=== PATIENT | male | born 1945 | race Caucasian/White ===

== ENCOUNTER → 2016-08-15 | Outpatient (CLI) | payer MEDICARE, OTHER ==
--- NOTE | 2016-08-15 11:35 | DIAGNOSTIC IMAGING REPORT ---
CT SCAN OF THE CHEST WITHOUT IV CONTRAST CLINICAL HISTORY: Pulmonary nodule. COMPARISON STUDY: Chest CT dated 09/29/2015 and 09/09/2014. TECHNIQUE: CT scan of the thorax was performed from the thoracic inlet to the upper abdomen. Images are reviewed in the axial, sagittal, and coronal planes. IV contrast was not administered for this examination. CT DOSE: 561.84 mGycm FINDINGS: Thyroid: Imaged portions of the thyroid gland are normal in size and attenuation. Thoracic aorta: There is atherosclerotic calcification of the thoracic aorta, which is normal in caliber and demonstrates standard 3-vessel arch anatomy. Heart: The heart is mildly enlarged and without pericardial effusion. The coronary arteries are densely calcified. Lungs and pleural spaces: There are large bilateral calcified pleural plaques, left greater than right. No airspace consolidation is seen typical for pneumonia and there is no pleural effusion. Again seen is a 1.2 cm noncalcified nodule in the superior segment of the left lower lobe on image #138. This is unchanged from the 09/09/2014 examination when differences in measurement technique are taken into account. A 2 mm left apical pulmonary nodule seen on image #56 is also unchanged. No new pulmonary nodules are identified. The trachea and central airways are clear. Mediastinum: There is no mediastinal lymphadenopathy. Estella: Not well assessed without IV contrast. Axillae: There is no axillary lymphadenopathy. Upper abdomen: There is a small hiatal hernia. Again seen is a 6 cm mass lesion in the central right lobe of liver. This has been present dating back to 2014, and although only partially characterized on the prior study showed peripheral discontinuous nodular enhancement suggesting that this likely represents a hemangioma. Additional hemangiomas are seen on images #249, #263, #268, and #302. These are also unchanged. Skeletal structures: The skeletal structures are osteopenic. No lytic or blastic bony lesions are seen. IMPRESSION: 1. Unchanged appearance of an indeterminant 1.2 cm nodule in the left lower lobe as compared to the 09/09/2014 examination (any differences in reported size are related to measurement technique). 2 years of stability suggests a benign etiology. 2. No new pulmonary nodules are seen. 3. 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 4. Mild cardiomegaly. 5. There is no airspace consolidation or pleural effusion. 6. Several hepatic lesions are again noted and not significantly changed from 09/09/2014. Although incompletely characterized on the prior contrast-enhanced examination, the appearance of these lesions was typical for benign hemangiomas. These can be further assessed by MRI if clinically warranted. Electronically signed by: Trenton Anderson M.D. 08/15/2016 11:34 AM Dictated Date/Time: 08/15/2016 11:20 AM
== END | disposition home or self-care (01) ==
LOC: C.CTS 11:03
PROVIDERS: ATTEND Internal Medicine Pulmonary Disease
DX: R91.1 Solitary pulmonary nodule (principal); K76.9 Liver disease, unspecified

== ENCOUNTER → 2016-11-02 | Outpatient (CLI) | payer MEDICARE ==
[2016-11-02 12:15] LABS: BASO % 0.2 %; BASO ABS # 0.02 K/uL (0-0.2); COMPLETE YES; HEMATOCRIT 45.7 % (42-52); IG% 0.7 %; LYMPH % 18.2 %; LYMPH ABS # 1.63 K/uL (1.2-3.4); MEAN CELL VOLUME 91.6 fL (80-100); MEAN CORPUSCULAR HEMOGLOBIN 32.1 pg (25-34); MEAN PLATELET VOLUME 9.4 fL (7.4-10.4); MONO % 11.4 %; NEUT % 68.5 %; PLATELET COUNT 327 K/uL (130-400); RED BLOOD COUNT 4.99 M/uL (4.7-6.1); WHITE BLOOD COUNT 8.94 K/uL (4.8-10.8)
[2016-11-02 13:06] LABS: ALT/SGPT 35 U/L (12-78); AST/SGOT 19 U/L (15-37); BLOOD UREA NITROGEN 11 mg/dl (7-18); BUN/CREATININE RATIO 11.2 (10-20); CALCIUM 8.5 mg/dl (8.5-10.1); CARBON DIOXIDE 26 mmol/L (21-32); CHLORIDE 103 mmol/L (98-107); CHOLESTEROL 163 mg/dl (0-200); CREATININE 0.94 mg/dl (0.60-1.40); GLUCOSE 130 mg/dl (70-99); POTASSIUM 4.5 mmol/L (3.5-5.1); SODIUM 136 mmol/L (136-145)
[2016-11-02 13:10] LABS: ALB/GLOB RATIO 1.1 (0.9-2); ALKALINE PHOSPHATASE 81 U/L (45-117); CHOLESTEROL/HDL RATIO 1.5; HDL CHOLESTEROL 111 mg/dl; LDL CHOLESTEROL CALCULATED 43 mg/dl; TRIGLYCERIDES 45 mg/dl (0-150); VERY LOW DENSITY LIPOPROT CALC 9 mg/dl
--- NOTE | 2016-11-06 10:39 | CODING QUERY MEDICAL NECESSITY ---
SUPPORTING DIAGNOSIS NEEDED Dr. Gibbs, A supporting diagnosis is required for the test/procedure performed on this patient in order for us to be reimbursed by the patient's insurance. Please provide a supporting diagnosis for the following test/procedure listed below next to the test name along with your signature. *If there is no additional diagnosis for this patient that would support the following test/procedure please document that below next to the test/procedure. Test(s)/Procedure(s) that require a supporting diagnosis: * [id number] PSA DIAGNOSIS: DATE OF SERVICE: 11/02/16 Provider Signature: Date: Thank you Srinath Morris [facility] Information Management Once completed, please kindly fax back to [phone] For questions please call [phone]
== END | disposition home or self-care (01) ==
LOC: C.LABBFT 10:46
PROVIDERS: ATTEND Internal Medicine
DX: R91.1 Solitary pulmonary nodule (principal); Z12.5 Encounter for screening for malignant neoplasm of prostate

== ENCOUNTER → 2016-11-08 | Outpatient (CLI) | payer MEDICARE ==
[2016-11-09 06:19] LABS: ESTIMATED AVERAGE GLUCOSE 108 mg/dl; HA1C FLAG Normal (Normal)
--- NOTE | 2016-11-15 11:18 | CODING QUERY MEDICAL NECESSITY ---
CQSUPPORTING DIAGNOSIS NEEDED A supporting diagnosis is required for the test/procedure performed on this patient in order for us to be reimbursed by the patient's insurance. Please provide a supporting diagnosis for the following test/procedure listed below next to the test name along with your signature. *If there is no additional diagnosis for this patient that would support the following test/procedure please document that below next to the test/procedure. Test(s)/Procedure(s) that require a supporting diagnosis: DOS 11/08/16 GLYCATED HEMOGLOBIN Provider Signature: Date: Thank you Shira Carney [facility] Information Management Once completed, please kindly fax back to [phone] For questions please call [phone]
== END | disposition home or self-care (01) ==
LOC: C.LABBFT 12:38
PROVIDERS: ATTEND Internal Medicine
DX: R00.2 Palpitations (principal); R73.01 Impaired fasting glucose

== ENCOUNTER → 2018-01-02 | Outpatient (CLI) | payer MEDICARE ==
[2018-01-02 13:04] LABS: OSMOLALITY,URINE 343 mOms/kg (500-800)
[2018-01-02 13:07] LABS: SODIUM RANDOM URINE 44 mEq/L
== END | disposition home or self-care (01) ==
LOC: C.LABBFT 10:07
PROVIDERS: ATTEND Internal Medicine
DX: E87.6 Hypokalemia (principal)

== ENCOUNTER → 2018-02-03 | Outpatient (CLI) | payer MEDICARE ==
[2018-02-03 13:33] LABS: BLOOD UREA NITROGEN 11 mg/dl (7-18); CALCIUM 8.9 mg/dl (8.5-10.1); CARBON DIOXIDE 29 mmol/L (21-32); CREATININE 0.95 mg/dl (0.60-1.40); GLUCOSE 124 mg/dl (70-99); POTASSIUM 4.7 mmol/L (3.5-5.1); SODIUM 133 mmol/L (136-145)
== END | disposition home or self-care (01) ==
LOC: C.LABBFT 10:04
PROVIDERS: ATTEND Internal Medicine
DX: E87.6 Hypokalemia (principal)

== ENCOUNTER 2023-11-26 10:33 | Inpatient (IN) ==
[2023-11-26 11:24] LABS: Basophils # (auto) 0.04 K/uL (0.00-0.20); Basophils % (auto) 0.2 %; Eosinophils # (auto) 0.06 K/uL (0.00-0.50); Eosinophils % (auto) 0.4 %; Hemoglobin 13.6 g/dl (14.0-18.0); Immature Granulocytes # (auto) 0.19 K/uL (0.01-0.20); Immature Granulocytes % (auto) 1.1 %; Lymphocytes # (auto) 1.27 K/uL (1.20-3.40); Lymphocytes % (auto) 7.6 %; Mean Corpuscular Hemoglobin 32.2 pg (25.0-34.0); Mean Corpuscular Hgb Conc 36.8 g/dL (32.0-36.0); Mean Corpuscular Volume 87.7 fL (80.0-100.0); Mean Platelet Volume 9.4 fL (9.4-12.4); Monocytes % (auto) 10.7 %; Neutrophils # (auto) 13.46 K/uL (1.40-6.50); Platelet Count 382 K/uL (130-400); RDW Coefficient of Variation 11.6 % (11.5-14.5); RDW Standard Deviation 37.2 fL (36.4-46.3); Red Blood Count 4.22 M/uL (4.70-6.10); White Blood Count 16.82 K/ul (4.8-10.8)
[2023-11-26 11:27] LABS: Appearance Urine Clear (Clear); Bacteria Urine Automated None Seen (None Seen); Bilirubin Urine Negative (Negative); Blood Urine Negative (Negative); Cast Urine Automated 0-2 /lpf (0-2); Color Urine Yellow; Epithelial Cell Urine Auto 0-2 /hpf (0-2); Glucose Urine UA Negative (Negative); Ketones Urine Negative (Negative); Leukocyte Esterase Urine Negative (Negative); Nitrite Urine Negative (Negative); Protein Urine Trace (Negative); RBC Urine Automated 0-2 /hpf (0-2); Specific Gravity Urine 1.007 (1.000-1.030); Urobilinogen Urine Negative (Negative); WBC Urine Automated 0-5 /hpf (0-5)
[2023-11-26 11:35] LABS: Albumin Globulin Ratio 1.2 (0.9-2); Albumin Level 4.1 gm/dl (3.4-5.0); BUN Creatinine Ratio 11.3 (10-20); Bilirubin,Total 0.7 mg/dl (0.2-1.0); Calcium 9.6 mg/dl (8.6-10.3); Creatinine Clr Calc Pharmacy 82.8 ml/min; Est GFR (African American) 100.6 ml/min; Est GFR (Non-African American) 86.8 ml/min; Globulin 3.4 gm/dl (2.5-4.0); Potassium 3.2 mmol/L (3.5-5.1); Total Protein 7.5 gm/dl (6.0-8.3)
[2023-11-26] MEDS: OPTIRAY 320 100ml IV ONE (12:13)
--- NOTE | 2023-11-26 12:46 | CT Scan Report ---
CT abd pelvis IV con only CLINICAL HISTORY: jessica-rectal/anal abscess, fevers TECHNIQUE: Helical axial images of the abdomen and pelvis were obtained and displayed. Automated dose lowering techniques and/or adjustment according to patient size were utilized for this exam. This e xam was performed with intravenous contrast. CT DOSE: 1372.87 mGy.cm COMPARISON: Comparison is made to CT chest 09/29/2015 FINDINGS: Lower chest: Pleural plaques are seen. Liver: A likely hemangioma is seen in the caudate lobe. This is similar to prior CT chest. Gallbladder and biliary tree: Cholelithiasis is seen without evidence of cholecystitis. No intra- or extrahepatic biliary ductal dilation. Pancreas: Unremarkable, no focal lesions. Spleen: Unremarkable. Adrenals: Unremarkable. Kidneys and ureters: Perinephric stranding is noted bilaterally. Bladder: Unremarkable. Reproductive organs: Unremarkable. Bowel: A hiatal hernia is seen. A duodenal diverticulum is seen. The appendix is normal. There is a c omplex fluid collection in the posterior aspect of the rectum measuring up to 38 mm in diameter, with rim enhancement. Lymph nodes Retroperitoneal: Unremarkable. Pelvic: Unremarkable. Mesenteric: Unremarkable. Peritoneum: Mild peritoneal stranding is seen. Vessels: Atherosclerotic calcifications are seen. Abdominal wall: Unremarkable. Bones: Degenerative changes in the visualized spine. IMPRESSION: 1. Findings are compatible with perirectal abscess. 2. Partially visualized but essentially stable hepatic hemangioma. 3. Calcified pleural plaques are seen. 4. Additional findings as above. ACT 112: Negative or not required by law. Electronically signed by: Bob Hoyos M.D. 11/26/2023 12:45 PM
--- NOTE | 2023-11-26 14:02 | History & Physical Report ---
Date of Service November 26, 2023 Assessment & Plan (1) Perirectal abscess: Plan: Perirectal abscess Surgery consulted, following. Plan to stabilize electrolytes today, schedule for OR tomorrow morning. Continue Zosyn Leukocytosis of 16.8 to He does not meet sepsis criteria, and does not appear toxic N.p.o. 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 Low perioperative risk. Recommend electrolyte optimization/treatment of hypokalemia and hyperkalemia evaluation for hypomagnesemia prior to surgical intervention. Once these are stable, proceed with surgery as scheduled (2) Hyponatremia: Plan: Hyponatremia History of SIADH. Follows with nephrology. Has been on torsemide in the past but has not taken this for several days Sodium, potassium, and chloride are all depleted. Hemoglobin mildly low? solutedepletion versus dilution with free water retention, suspect the latter given history Fluid restricted to 1300 cc Will give torsemide x 1 to promote free water excretion in excess of salt loss. Salt tablets added, potassium supplementation added along with this tonight Urine osmolality, urine sodium pending Potassium repleted Hypertension Metoprolol continued, do not hold due to risk of beta-guido withdrawal (3) SIADH (syndrome of inappropriate ADH production): (4) PSVT (paroxysmal supraventricular tachycardia): Plan: History of SVT Continue metoprolol Continue medical telemetry Magnesium level added. Optimize potassium goal 4.0, magnesium 2.0 Plan Chronic stable issues Hyperlipidemia: Continue statin Intermittent chronic anemia: Hemoglobin ranging 13.315, hemoglobin 13.6 with a normal MCV, no evidence of acute hemodynamically significant bleeding. Repeat H&H daily DVT prophylaxis: SCDs, heparin TID. Hold heparin 12 hours prior to anticipated sx. CODE STATUS: Full code Diet: N.p.o. Disposition: Medical telemetry due to history of SVT with admitting hypokalemia History of Present Illness Primary Care Provider: DO Salvatore Drake is a 78-year-old male with past medical history of hyponatremia due to SIADH, cirrhosis exposure, Schatzki's ring, impaired fasting glucose, and essential hypertension presented to the ER with rectal pain. CTA/P shows perirectal abscess. He has a leukocytosis of 16.82. Renal function is at baseline Sodium, potassium, and chloride are all low. Sodium 125 with BSG of 130 with history of SIADH. UA is bland. Surgery was consulted for drainage of perirectal abscess. He is recommended for medical admission due to medical comorbidities/age/ 5 days rectal pain, gradulaly worsening. No blood/melena in BMs. No pus or discharge in BMs. No prior hx of similar symptoms. No hx of colorecetal problems 'just came up all of a sudden.' 3 of the last few nights had fevers at night with sweats and chills. NO chest pain or chest pressure. No history of kidney problems. No history of DM2. No history of blood clots or bleeding problems. No medication allergies. No neausea or vomiting Last meal was last night. No aspirin or blood thinner use. History of low sodium. Normally ~134. Takes torsemide for this, has not taken in ~4 days, Medical History: Reviewed Medications: Reviewed Surgical History: Reviewed Family history: Reviewed Allergies: Reviewed Social History: Reviewed Code Status: Full Allergies Allergy/AdvReac Type Severity Reaction Status Date / Time bee venom protein (honey bee) Allergy Severe Anaphylaxis Verified 11/26/23 12:48 No Known Drug Allergies Allergy 0 Verified 11/26/23 12:48 Home Medications Medication Instructions Recorded Confirmed Type omeprazole magnesium 20 mg 20 mg PO QAM 10/25/21 11/26/23 History tablet,delayed release (Prilosec OTC) epinephrine 0.3 mg/0.3 mL 0.3 mg (0.3 mL) IM Q10M PRN 02/04/23 11/26/23 Rx injection, auto-injector (EpiPen anaphylaxis #2 ea 2-Aleks) ergocalciferol (vitamin D2) 1,250 1,250 mcg PO .COMPLEX #12 caps 05/29/23 11/26/23 Rx mcg (50,000 unit) capsule torsemide 5 mg tablet 5 mg PO QAM #90 tabs 08/05/23 11/26/23 Rx sildenafil 100 mg tablet See Rx Instructions .Route 08/27/23 11/26/23 Rx .COMPLEX #18 tabs simvastatin 40 mg tablet 40 mg PO HS #90 tabs 09/27/23 11/26/23 Rx metoprolol succinate 50 mg 50 mg PO DAILY 11/26/23 11/26/23 History tablet,extended release 24 hr Past Med/Surg History Problem List (Updated 11/26/23 @ 14:00 by Wilfred Barahona MD) Perirectal abscess Essential hypertension Right ankle pain History of colon polyps Chronic fatigue syndrome (Acute) Elevated blood pressure reading in office with white coat syndrome, without diagnosis of hypertension (Acute) Hepatic hemangioma (Acute) Hypokalemia (Acute) Hyponatremia (Acute) Impaired fasting glucose (Acute) Male erectile disorder of organic origin (Acute) PSVT (paroxysmal supraventricular tachycardia) (Acute) reason for metoprolol SIADH (syndrome of inappropriate ADH production) (Acute) Anemia H/O asbestos exposure Obesity Vitamin D deficiency Chronic GERD Schatzki's ring of distal esophagus Bilateral sacroiliitis Medical History History of multiple pulmonary nodules Right ankle pain H/O asbestos exposure SIADH (syndrome of inappropriate ADH production) PSVT (paroxysmal supraventricular tachycardia) Hepatic hemangioma History of colon polyps Hyperlipidemia Surgical History History of colonoscopy History of tooth extraction Family History Father Cancer Lung cancer Brother Cancer Mother Breast cancer Gallbladder disease Other No family history of adverse response to anesthesia Denies family history of Ovarian cancer Prostate cancer Heart disease Myocardial infarction Colorectal cancer Social History Smoking Status: Former smoker Tobacco Type: Cigarettes Age Started Using Tobacco: 22; Age Quit Using Tobacco: 47; Second Hand Exposure: Yes (parents smoked/ smokes); Do You Dip or Chew Tobacco: No; Hx Alcohol Use: Yes Alcohol type: beer Hx Substance Use: No Preferred Language: Greek Communication Ability: Effective Visual Impairment: Limited Hearing Ability: Normal Thermoforming Operator Required: No Beliefs That Will Affect Care: None marital status: Current Living Situation: Spouse current occupational status: retired How many Children do You have: 3 Feels Safe at Home: Yes Childhood Exposure to Second-Hand Smoke: Yes caffeine: Yes Dental Care, Regularly: Yes Physical Activity Frequency: 1-2 Times per Week Seatbelt Use: always Sunscreen Use: Yes Assistive Devices: Glasses Physical Exam Physical Exam: General: A&Ox3. NAD. Cooperative. HEENT: Atraumatic, normocephalic. PERLAA. Vision/hearing intact Pulm: CTAB A&P. -wheezes, -rales, -rhonchi. Symmetrical chest rise. No increased work of breathing. No respiratory distress. Cardiac: RRR, soft sm. Radial pulses intact and symmetrical. Abdominal: Softly distended, Nontender, nondistended, soft. BS present. Ext: warm, dry, no edema Results & Data Results & Data Vital Signs (Past 12 Hours) Vital Signs Temp Pulse Resp BP Pulse Ox O2 Del Method 11/26/23 13:03 79 21 154/77 H 98 Room Air 11/26/23 12:03 21 123/69 98 Room Air 11/26/23 11:51 20 11/26/23 11:48 21 11/26/23 10:35 36.0 C L 74 20 179/79 H 97 Room Air PG Care Time/CCT Total # of Minutes Spent Total Time Spent with Patient: Total time spent is greater than 50% in coordination of care (as documented) at patient's floor/unit and/or counseling patient: Coding Level of Care Code 76719 INT INP/OBS CARE 3/75MIN Diagnoses Perirectal abscess K61.1 Hyponatremia E87.1 SIADH (syndrome of inappropriate ADH production) E22.2 PSVT (paroxysmal supraventricular tachycardia) I47.1
[2023-11-26] MEDS: PIPERACILLIN/TAZOBACTAM 4.5 GM/100 ML BAG IV ONE (14:07)
[2023-11-26] MEDS ORDERED: GLUCOSE 40% GEL 15 GM TUBE PO PRN (14:21)
[2023-11-26] MEDS ORDERED: DEXTROSE 50% 50 ML SYRINGE IV PRN (14:21)
[2023-11-26] MEDS ORDERED: GLUCOSE 10 TAB/TUBE PO PRN (14:21)
[2023-11-26] MEDS ORDERED: GLUCAGON FOR INJ 1 MG VIAL SQ PRN (14:21)
[2023-11-26] MEDS ORDERED: CARBOHYDRATES FOR HYPOGLYCEMIA PO PRN (14:21)
--- NOTE | 2023-11-26 14:29 | Emergency Department Note ---
Impression & Plan Abscess, perirectal, Acute hyponatremia ED Provider Note NAME: ANTONIO PACHECO AGE: 78 SEX: M : 1945 ARRIVES VIA: Walk-In INFORMANT: Patient, ED PROVIDER(S): Gin Madera MD CHIEF COMPLAINT: Rectal pain HPI: This is a 78-year-old male presenting for rectal pain. Patient notes a swelling to the rim of his anus on the right side for the past 2 to 3 days. He has noticed fevers as high as 101 at home. Notes pain with sitting and defecation. He states he feels fatigued as well. He never had this happen before. No nausea or vomiting. No diarrhea. ROS: See above HPI for pertinent positives & negatives. A total of 10 systems reviewed and were otherwise negative. PHYSICAL EXAMINATION: General: resting comfortably in no acute distress Head: Normocephalic and atraumatic Eyes: Normal inspection, extraocular muscles intact Ear, nose, throat: Normal external exam Neck: Normal range of motion Respiratory: lungs clear to auscultation bilaterally Cardiovascular: Regular rate/rhythm, no murmur GI: soft, nontender, no guarding or rebound : No obvious erythema or swelling to the perineum, rectum, anus Extremities: nontender, moves all extremities Neuro: The patient awake and alert, appropriately conversive, no focal deficits, symmetric faces Skin: Warm, dry, and intact MEDICAL DECISION MAKING: This is a 78-year-old male presenting for rectal pain. He is significant tender on exam but has no obvious overlying skin findings. Concern for deeper infection. Will do CT ab/pelvis. Will do blood work. -Blood work is revealing of a leukocytosis up to 16, hyponatremia with electrolyte disturbances. -CT imaging does reveal a perirectal abscess. Discussed with Flora Darling PA-C about care. They will evaluate the patient at bedside. Recommended admission to medicine and the OR likely tomorrow Differential diagnosis: Perineal abscess, perirectal abscess, low concern for Esther's gangrene ER treatment provided: See below Diagnostics interpreted by me: ECG: None Cardiac Monitoring: An order was placed for continuous cardiac monitoring. The monitor shows a rate of 77 with sinus rhythm. Laboratory studies: As stated above and show below. Imaging studies: See below. Past Med/Surg History Problem List (Updated 11/26/23 @ 16:56 by Gin Madera MD) Acute hyponatremia (Acute) Abscess, perirectal (Acute) Perirectal abscess Essential hypertension Right ankle pain History of colon polyps Chronic fatigue syndrome (Acute) Elevated blood pressure reading in office with white coat syndrome, without diagnosis of hypertension (Acute) Hepatic hemangioma (Acute) Hypokalemia (Acute) Hyponatremia (Acute) Impaired fasting glucose (Acute) Male erectile disorder of organic origin (Acute) PSVT (paroxysmal supraventricular tachycardia) (Acute) reason for metoprolol SIADH (syndrome of inappropriate ADH production) (Acute) Anemia H/O asbestos exposure Obesity Vitamin D deficiency Chronic GERD Schatzki's ring of distal esophagus Bilateral sacroiliitis Medical History History of multiple pulmonary nodules worked up, no further workup needed History of colon polyps Hyperlipidemia Surgical History History of colonoscopy last 07/2018 @ [facility] History of tooth extraction under local Family History Father Cancer Lung cancer Brother Cancer Mother Breast cancer Gallbladder disease Other No family history of adverse response to anesthesia Denies family history of Ovarian cancer Prostate cancer Heart disease Myocardial infarction Colorectal cancer Social History Smoking Status: Current every day smoker Tobacco Type: Cigarettes Age Started Using Tobacco: 22; Age Quit Using Tobacco: 47; Second Hand Exposure: Yes (parents smoked/ smokes); Do You Dip or Chew Tobacco: No; Hx Alcohol Use: Yes Alcohol type: beer Hx Substance Use: No Preferred Language: Micronesian Communication Ability: Effective Visual Impairment: Limited Hearing Ability: Normal Diversified Crops Farmer Required: No Beliefs That Will Affect Care: Scientologist Scientologist Beliefs: Hindu marital status: Current Living Situation: Spouse current occupational status: retired How many Children do You have: 3 Other Information That Helps Us Care for You: No Feels Safe at Home: Yes Safety Concerns: Feels Safe At This Time Childhood Exposure to Second-Hand Smoke: Yes caffeine: Yes Dental Care, Regularly: Yes Physical Activity Frequency: 1-2 Times per Week Seatbelt Use: always Sunscreen Use: Yes Assistive Devices: Glasses Allergies Allergies Allergy/AdvReac Type Severity Reaction Status Date / Time bee venom protein (honey bee) Allergy Severe Anaphylaxis Verified 11/26/23 12:48 No Known Drug Allergies Allergy 0 Verified 11/26/23 12:48 Home Meds Home Medications Medication Instructions Recorded Confirmed omeprazole magnesium 20 mg 20 mg PO QAM 10/25/21 11/26/23 tablet,delayed release (Prilosec OTC) metoprolol succinate 50 mg 50 mg PO DAILY 11/26/23 11/26/23 tablet,extended release 24 hr Previous Rx's Medication Instructions Recorded epinephrine 0.3 mg/0.3 mL 0.3 mg (0.3 mL) IM Q10M PRN 02/04/23 injection, auto-injector (EpiPen anaphylaxis #2 ea 2-Aleks) ergocalciferol (vitamin D2) 1,250 1,250 mcg PO .COMPLEX #12 caps 05/29/23 mcg (50,000 unit) capsule torsemide 5 mg tablet 5 mg PO QAM #90 tabs 08/05/23 sildenafil 100 mg tablet See Rx Instructions .Route 08/27/23 .COMPLEX #18 tabs simvastatin 40 mg tablet 40 mg PO HS #90 tabs 09/27/23 Results & Data (ED) Vital Signs Vital Signs - 24 hr 11/26/23 10:35 11/26/23 11:48 11/26/23 11:51 Temperature 36.0 C L Temperature Source Temporal Artery Scan Pulse Rate 74 Pulse Rhythm Regular Pulse Strength Normal Respiratory Rate 20 21 20 Respiratory Effort / Characteristics Non-Labored Spontaneous Respiratory Depth Normal Respiratory Pattern Regular Blood Pressure 179/79 H Blood Pressure Mean 112 Blood Pressure Position Sitting Pulse Oximetry 97 Oxygen Delivery Method Room Air Sepsis Recent Fever Within 48 Hours No Sepsis New/Unexplained Change in Mental Status No Sepsis Action Taken by Nursing No Action Required 11/26/23 12:03 11/26/23 13:03 Temperature Temperature Source Pulse Rate 79 Pulse Rhythm Pulse Strength Respiratory Rate 21 21 Respiratory Effort / Characteristics Respiratory Depth Respiratory Pattern Blood Pressure 123/69 154/77 H Blood Pressure Mean 87 102 Blood Pressure Position Pulse Oximetry 98 98 Oxygen Delivery Method Room Air Room Air Sepsis Recent Fever Within 48 Hours Sepsis New/Unexplained Change in Mental Status Sepsis Action Taken by Nursing Laboratory Data 11/26/23 10:42 11/26/23 10:42 Lab Results 11/26/23 Range/Units 10:42 WBC 16.82 H (4.8-10.8) K/ul RBC 4.22 L (4.70-6.10) M/uL Hgb 13.6 L (14.0-18.0) g/dl Hct 37.0 L (42.0-52.0) % MCV 87.7 (80.0-100.0) fL MCH 32.2 (25.0-34.0) pg MCHC 36.8 H (32.0-36.0) g/dL RDW Std Deviation 37.2 (36.4-46.3) fL RDW Coeff of Howard 11.6 (11.5-14.5) % Plt Count 382 (130-400) K/uL MPV 9.4 (9.4-12.4) fL Immature Gran % (Auto) 1.1 % Neut % (Auto) 80.0 % Lymph % (Auto) 7.6 % [place] % (Auto) 10.7 % Eos % (Auto) 0.4 % Baso % (Auto) 0.2 % Neut # (Auto) 13.46 H (1.40-6.50) K/uL Lymph # (Auto) 1.27 (1.20-3.40) K/uL [place] # (Auto) 1.80 H (0.11-0.59) K/uL Eos # (Auto) 0.06 (0.00-0.50) K/uL Baso # (Auto) 0.04 (0.00-0.20) K/uL Immature Gran # (Auto) 0.19 (0.01-0.20) K/uL Sodium 125 L (136-145) mmol/L Potassium 3.2 L (3.5-5.1) mmol/L Chloride 91 L (98-107) mmol/L Carbon Dioxide 23 (21-32) mmol/L Anion Gap 11 (3-11) BUN 9 (6-23) mg/dl Creatinine 0.80 (0.6-1.4) mg/dl Est Cr Clr Drug Dosing 82.8 ml/min Est GFR ( Amer) 100.6 ml/min Est GFR (Non-Af Amer) 86.8 ml/min BUN/Creatinine Ratio 11.3 (10-20) Glucose 130 H (70-99(Fasting)) mg/dl Osmolality 273 L (280-300) mOsm/kg Calcium 9.6 (8.6-10.3) mg/dl Magnesium 1.3 L (1.7-2.4) mg/dl Total Bilirubin 0.7 (0.2-1.0) mg/dl AST 14 (13-39) U/L ALT 10 (7-52) U/L Alkaline Phosphatase 73 (34-104) U/L Total Protein 7.5 (6.0-8.3) gm/dl Albumin 4.1 (3.4-5.0) gm/dl Globulin 3.4 (2.5-4.0) gm/dl Albumin/Globulin Ratio 1.2 (0.9-2) Lipase 11 (11-82) U/L Urine Color Yellow Urine Appearance Clear (Clear) Urine pH 6.0 (4.5-7.5) Ur Specific [place] 1.007 (1.000-1.030) Urine Protein Trace H (Negative) Urine Glucose (UA) Negative (Negative) Urine Ketones Negative (Negative) Urine Blood Negative (Negative) Urine Nitrite Negative (Negative) Urine Bilirubin Negative (Negative) Urine Urobilinogen Negative (Negative) Ur Leukocyte Esterase Negative (Negative) Urine WBC (Auto) 0-5 (0-5) /hpf Urine RBC (Auto) 0-2 (0-2) /hpf U Hyaline Cast (Auto) 0-2 (0-2) /lpf U Epithel Cells (Auto) 0-2 (0-2) /hpf Urine Bacteria (Auto) None Seen (None Seen) Administered Medications Hydromorphone HCl (Hydromorphone Inj 0.5 Mg/0.5 Ml Syr) 0.5 mg IV Q4H PRN PRN Reason: Moderate Pain (4,5,6) on NRS Stop: 12/10/23 16:13 Last Admin: 11/26/23 16:28 Dose: 0.5 mg Documented By: KAYLI Magnesium Sulfate/Dextrose (Magnesium Sulfate / D5w) 1 gm in 100 mls @ 50 mls/hr IV ONE ONE Stop: 11/26/23 17:40 Last Admin: 11/26/23 16:30 Dose: 50 mls/hr Documented By: KAYLI Discontinued Medications Piperacillin Sod/Tazobactam Sod (Zosyn) 4.5 gm in 100 mls @ 200 mls/hr IV NOW ONE Stop: 11/26/23 14:21 Last Infusion: 11/26/23 14:38 Dose: Infused Documented By: Admin: 11/26/23 14:07 Dose: 200 mls/hr Documented By: TINA Ioversol (Optiray 320 100ml) 94 ml IV ONCE ONE Stop: 11/26/23 12:13 Last Admin: 11/26/23 12:13 Dose: 94 ml Documented By: MITRA Potassium Chloride (Potassium Chloride Crtab 20 Meq Tabcr) 40 meq PO NOW STA Stop: 11/26/23 14:22 Last Admin: 11/26/23 14:56 Dose: 40 meq Documented By: JORDYN Imaging Data Radiologist's Impression: Abdomen/Pelvis CT 11/26/23 11:09 CT abd pelvis IV con only CLINICAL HISTORY: jessica-rectal/anal abscess, fevers TECHNIQUE: Helical axial images of the abdomen and pelvis were obtained and displayed. Automated dose lowering techniques and/or adjustment according to patient size were utilized for this exam. This exam was performed with intravenous contrast. CT DOSE: 1372.87 mGy.cm COMPARISON: Comparison is made to CT chest 09/29/2015 FINDINGS: Lower chest: Pleural plaques are seen. Liver: A likely hemangioma is seen in the caudate lobe. This is similar to prior CT chest. Gallbladder and biliary tree: Cholelithiasis is seen without evidence of cholecystitis. No intra- or extrahepatic biliary ductal dilation. Pancreas: Unremarkable, no focal lesions. Spleen: Unremarkable. Adrenals: Unremarkable. Kidneys and ureters: Perinephric stranding is noted bilaterally. Bladder: Unremarkable. Reproductive organs: Unremarkable. Bowel: A hiatal hernia is seen. A duodenal diverticulum is seen. The appendix is normal. There is a complex fluid collection in the posterior aspect of the rectum measuring up to 38 mm in diameter, with rim enhancement. Lymph nodes Retroperitoneal: Unremarkable. Pelvic: Unremarkable. Mesenteric: Unremarkable. Peritoneum: Mild peritoneal stranding is seen. Vessels: Atherosclerotic calcifications are seen. Abdominal wall: Unremarkable. Bones: Degenerative changes in the visualized spine. IMPRESSION: 1. Findings are compatible with perirectal abscess. 2. Partially visualized but essentially stable hepatic hemangioma. 3. Calcified pleural plaques are seen. 4. Additional findings as above. ACT 112: Negative or not required by law. Electronically signed by: Bob Hoyos M.D. 11/26/2023 12:45 PM Discharge Plan Visit Data Chief Complaint: Referred by Doctor Stated Complaint: SEVERE ANAL PAIN FOR 5 DAYS, FEVER ED Provider: Gin Madera Discharge Problem: Abscess, perirectal, Acute hyponatremia Patient Disposition: Still a Patient Discharge Instructions Interventions: ED Discharge Assessment Last Done: 11/26/23 14:58
[2023-11-26 14:38] LABS: Magnesium 1.3 mg/dl (1.7-2.4)
[2023-11-26] MEDS: POTASSIUM CHLORIDE CRTAB 20 MEQ TABCR PO STA (14:56)
--- NOTE | 2023-11-26 15:39 | Surgery Consultation ---
Date of Consultation November 26, 2023 Assessment & Plan (1) Perirectal abscess: 78-year-old gentleman with perirectal abscess. I discussed this with GI, Dr. Jacobs, as well as radiology, Dr. Hendricks. This appears to be just a large simple perirectal abscess. I discussed this with the patient. Will set him up for incision and drainage of the perirectal abscess tomorrow. His sodium today was 125. He will be admitted to medicine for resuscitation. He will be n.p.o. after midnight. We will plan for the I&D tomorrow. All his questions were answered. History of Present Illness Reason for Consultation: Perirectal abscess Requesting Physician: Wilfred Staples MD Attending Physician: Wilfred Staples MD History of Present Illness 78-year-old gentleman presents with 5 days of severe anal pain. He has had fevers at night. He denies nausea or vomiting. He has had normal bowel mov ements. No purulent drainage or blood. Last colonoscopy was 5 years ago. He was due for colonoscopy in December of this year. CT scan demonstrates large perirectal abscess. Allergies Allergy/AdvReac Type Severity Reaction Status Date / Time bee venom protein (honey bee) Allergy Severe Anaphylaxis Verified 11/26/23 12:48 No Known Drug Allergies Allergy 0 Verified 11/26/23 12:48 Home Medications Medication Instructions Recorded Confirmed Type omeprazole magnesium 20 mg 20 mg PO QAM 10/25/21 11/26/23 History tablet,delayed release (Prilosec OTC) epinephrine 0.3 mg/0.3 mL 0.3 mg (0.3 mL) IM Q10M PRN 02/04/23 11/26/23 Rx injection, auto-injector (EpiPen anaphylaxis #2 ea 2-Aleks) ergocalciferol (vitamin D2) 1,250 1,250 mcg PO .COMPLEX #12 caps 05/29/23 11/26/23 Rx mcg (50,000 unit) capsule torsemide 5 mg tablet 5 mg PO QAM #90 tabs 08/05/23 11/26/23 Rx sildenafil 100 mg tablet See Rx Instructions .Route 08/27/23 11/26/23 Rx .COMPLEX #18 tabs simvastatin 40 mg tablet 40 mg PO HS #90 tabs 09/27/23 11/26/23 Rx metoprolol succinate 50 mg 50 mg PO DAILY 11/26/23 11/26/23 History tablet,extended release 24 hr Patient History Medical History History of multiple pulmonary nodules worked up, no further workup needed History of colon polyps Hyperlipidemia Surgical History History of colonoscopy last 07/2018 @ [facility] History of tooth extraction under local Family History Father Cancer Lung cancer Brother Cancer Mother Breast cancer Gallbladder disease Other No family history of adverse response to anesthesia Denies family history of Ovarian cancer Prostate cancer Heart disease Myocardial infarction Colorectal cancer Social History Smoking Status: Former smoker Tobacco Type: Cigarettes Age Started Using Tobacco: 22; Age Quit Using Tobacco: 47; Second Hand Exposure: Yes (parents smoked/ smokes); Do You Dip or Chew Tobacco: No; Hx Alcohol Use: Yes Alcohol type: beer Hx Substance Use: No Preferred Language: Divehi Communication Ability: Effective Visual Impairment: Limited Hearing Ability: Normal Invoice Clerk Required: No Beliefs That Will Affect Care: None marital status: Current Living Situation: Spouse current occupational status: retired How many Children do You have: 3 Feels Safe at Home: Yes Childhood Exposure to Second-Hand Smoke: Yes caffeine: Yes Dental Care, Regularly: Yes Physical Activity Frequency: 1-2 Times per Week Seatbelt Use: always Sunscreen Use: Yes Assistive Devices: Glasses Review of Systems Review of Systems: All systems reviewed & are unremarkable except as noted in HPI & below Physical Exam Constitutional: WD/WN, vitals as above Eyes: PERRL, conjunctivae normal, anicteric sclerae ENMT: external ear and nose normal, oropharynx normal Neck: trachea midline, no thyromegaly Respiratory: normal respiratory effort, lungs clear to auscultation Cardiovascular: RRR, no murmur, no edema Gastrointestinal (Abdomen): normal bowel sounds, soft, nontender, no hepatosplenomegaly Perianal region appears normal without erythema; induration and pain to palpation posteriorly. Skin: no rashes, warm and dry Psychiatric: A+Ox3, euthymic affect Results & Data Vital Signs (Past 12 Hours) Vital Signs Temp Pulse Resp BP Pulse Ox O2 Del Method 11/26/23 14:59 74 11/26/23 14:58 72 18 156/78 H 98 Room Air 11/26/23 13:03 79 21 154/77 H 98 Room Air 11/26/23 12:03 21 123/69 98 Room Air 11/26/23 11:51 20 11/26/23 11:48 21 11/26/23 10:35 36.0 C L 74 20 179/79 H 97 Room Air Laboratory Results 11/26/23 Range/Units 10:42 WBC 16.82 H (4.8-10.8) K/ul RBC 4.22 L (4.70-6.10) M/uL Hgb 13.6 L (14.0-18.0) g/dl Hct 37.0 L (42.0-52.0) % MCV 87.7 (80.0-100.0) fL MCH 32.2 (25.0-34.0) pg MCHC 36.8 H (32.0-36.0) g/dL RDW Std Deviation 37.2 (36.4-46.3) fL RDW Coeff of [place] 11.6 (11.5-14.5) % Plt Count 382 (130-400) K/uL MPV 9.4 (9.4-12.4) fL Immature Gran % (Auto) 1.1 % Neut % (Auto) 80.0 % Lymph % (Auto) 7.6 % [place] % (Auto) 10.7 % Eos % (Auto) 0.4 % Baso % (Auto) 0.2 % Neut # (Auto) 13.46 H (1.40-6.50) K/uL Lymph # (Auto) 1.27 (1.20-3.40) K/uL [place] # (Auto) 1.80 H (0.11-0.59) K/uL Eos # (Auto) 0.06 (0.00-0.50) K/uL Baso # (Auto) 0.04 (0.00-0.20) K/uL Immature Gran # (Auto) 0.19 (0.01-0.20) K/uL Sodium 125 L (136-145) mmol/L Potassium 3.2 L (3.5-5.1) mmol/L Chloride 91 L (98-107) mmol/L Carbon Dioxide 23 (21-32) mmol/L Anion Gap 11 (3-11) BUN 9 (6-23) mg/dl Creatinine 0.80 (0.6-1.4) mg/dl Est Cr Clr Drug Dosing 82.8 ml/min Est GFR ( Amer) 100.6 ml/min Est GFR (Non-Af Amer) 86.8 ml/min BUN/Creatinine Ratio 11.3 (10-20) Glucose 130 H (70-99(Fasting)) mg/dl Osmolality 273 L (280-300) mOsm/kg Calcium 9.6 (8.6-10.3) mg/dl Magnesium 1.3 L (1.7-2.4) mg/dl Total Bilirubin 0.7 (0.2-1.0) mg/dl AST 14 (13-39) U/L ALT 10 (7-52) U/L Alkaline Phosphatase 73 (34-104) U/L Total Protein 7.5 (6.0-8.3) gm/dl Albumin 4.1 (3.4-5.0) gm/dl Globulin 3.4 (2.5-4.0) gm/dl Albumin/Globulin Ratio 1.2 (0.9-2) Lipase 11 (11-82) U/L Urine Color Yellow Urine Appearance Clear (Clear) Urine pH 6.0 (4.5-7.5) Ur Specific [place] 1.007 (1.000-1.030) Urine Protein Trace H (Negative) Urine Glucose (UA) Negative (Negative) Urine Ketones Negative (Negative) Urine Blood Negative (Negative) Urine Nitrite Negative (Negative) Urine Bilirubin Negative (Negative) Urine Urobilinogen Negative (Negative) Ur Leukocyte Esterase Negative (Negative) Urine WBC (Auto) 0-5 (0-5) /hpf Urine RBC (Auto) 0-2 (0-2) /hpf U Hyaline Cast (Auto) 0-2 (0-2) /lpf U Epithel Cells (Auto) 0-2 (0-2) /hpf Urine Bacteria (Auto) None Seen (None Seen) Diagnostic Findings CT abd pelvis IV con only CLINICAL HISTORY: jessica-rectal/anal abscess, fevers TECHNIQUE: Helical axial images of the abdomen and pelvis were obtained and displayed. Automated dose lowering techniques and/or adjustment according to patient size were utilized for this exam. This exam was performed with intravenous contrast. CT DOSE: 1372.87 mGy.cm COMPARISON: Comparison is made to CT chest 09/29/2015 FINDINGS: Lower chest: Pleural plaques are seen. Liver: A likely hemangioma is seen in the caudate lobe. This is similar to prior CT chest. Gallbladder and biliary tree: Cholelithiasis is seen without evidence of cholecystitis. No intra- or extrahepatic biliary ductal dilation. Pancreas: Unremarkable, no focal lesions. Spleen: Unremarkable. Adrenals: Unremarkable. Kidneys and ureters: Perinephric stranding is noted bilaterally. Bladder: Unremarkable. Reproductive organs: Unremarkable. Bowel: A hiatal hernia is seen. A duodenal diverticulum is seen. The appendix is normal. There is a complex fluid collection in the posterior aspect of the rectum measuring up to 38 mm in diameter, with rim enhancement. Lymph nodes Retroperitoneal: Unremarkable. Pelvic: Unremarkable. Mesenteric: Unremarkable. Peritoneum: Mild peritoneal stranding is seen. Vessels: Atherosclerotic calcifications are seen. Abdominal wall: Unremarkable. Bones: Degenerative changes in the visualized spine. IMPRESSION: 1. Findings are compatible with perirectal abscess. 2. Partially visualized but essentially stable hepatic hemangioma. 3. Calcified pleural plaques are seen. 4. Additional findings as above. ACT 112: Negative or not required by law. Electronically signed by: Bob Hoyos M.D. 11/26/2023 12:45 PM
[2023-11-26] MEDS: HYDROmorphone INJ 0.5 MG/0.5 ML SYR IV PRN (16:28)
[2023-11-26] MEDS: MAGNESIUM SULFATE / D5W 1 GM/100 ML BAG IV ONE (16:30)
[2023-11-26] MEDS: SODIUM CHLORIDE 1 GM TABLET PO SCH (16:53)
[2023-11-26] MEDS: TORSEMIDE 10 MG TAB PO ONE (16:53)
[2023-11-26 17:33] LABS: Calcium 9.6 mg/dl (8.6-10.3); Creatinine Clr Calc Pharmacy 74.6 ml/min; Est GFR (African American) 96.3 ml/min; Est GFR (Non-African American) 83.1 ml/min; Potassium 3.2 mmol/L (3.5-5.1)
[2023-11-26] MEDS: MAGNESIUM OXIDE 400 MG TAB PO SCH (18:08)
[2023-11-26] MEDS: PIPERACILLIN/TAZOBACTAM 4.5 GM in DEXTROSE 5% MINI-B 100 ML IV SCH (19:31)
[2023-11-26] MEDS: SIMVASTATIN 40 MG TAB PO SCH (20:37)
[2023-11-26] MEDS: POTASSIUM CHLORIDE CRTAB 20 MEQ TABCR PO SCH (20:37)
[2023-11-26] MEDS: HEPARIN SOD 5,000 UNIT/0.5 ML VIAL SQ SCH (20:37)
[2023-11-26] MEDS: HYDROmorphone INJ 1 MG/ML SYRINGE IV PRN (21:02)
[2023-11-26 21:45] LABS: BUN Creatinine Ratio 10.3 (10-20); Blood Urea Nitrogen 9 mg/dl (6-23); Calcium 9.3 mg/dl (8.6-10.3); Carbon Dioxide 23 mmol/L (21-32); Chloride 92 mmol/L (98-107); Creatinine Clr Calc Pharmacy 76.3 ml/min; Est GFR (African American) 97.2 ml/min; Est GFR (Non-African American) 83.8 ml/min; Glucose 150 mg/dl (70-99(Fasting))
[2023-11-26 23:33] LABS: Potassium 3.2 mmol/L (3.5-5.1)
[2023-11-27 00:34] LABS: BUN Creatinine Ratio 9.6 (10-20); Calcium 9.1 mg/dl (8.6-10.3); Creatinine Clr Calc Pharmacy 70.7 ml/min; Est GFR (African American) 90.9 ml/min; Est GFR (Non-African American) 78.4 ml/min
[2023-11-27 04:40] LABS: Basophils # (auto) 0.04 K/uL (0.00-0.20); Basophils % (auto) 0.3 %; Eosinophils # (auto) 0.07 K/uL (0.00-0.50); Eosinophils % (auto) 0.4 %; Hematocrit (blood only) 33.4 % (42.0-52.0); Hemoglobin 11.8 g/dl (14.0-18.0); Immature Granulocytes # (auto) 0.16 K/uL (0.01-0.20); Lymphocytes # (auto) 1.08 K/uL (1.20-3.40); Lymphocytes % (auto) 6.9 %; Mean Corpuscular Hemoglobin 31.6 pg (25.0-34.0); Mean Corpuscular Hgb Conc 35.3 g/dL (32.0-36.0); Mean Corpuscular Volume 89.3 fL (80.0-100.0); Monocytes # (auto) 1.62 K/uL (0.11-0.59); Monocytes % (auto) 10.4 %; Platelet Count 328 K/uL (130-400); RDW Coefficient of Variation 11.7 % (11.5-14.5); RDW Standard Deviation 37.6 fL (36.4-46.3); Red Blood Count 3.74 M/uL (4.70-6.10); White Blood Count 15.57 K/ul (4.8-10.8)
[2023-11-27 04:57] LABS: BUN Creatinine Ratio 10.4 (10-20); Creatinine Clr Calc Pharmacy 69.2 ml/min; Est GFR (African American) 88.6 ml/min; Est GFR (Non-African American) 76.5 ml/min; Magnesium 1.6 mg/dl (1.7-2.4); Potassium 3.3 mmol/L (3.5-5.1)
[2023-11-27] MEDS: PANTOprazole 40 MG TAB PO SCH (08:41)
[2023-11-27] MEDS: METOPROLOL SUCC 50MG EXT REL TAB PO SCH (08:41)
[2023-11-27 08:45] LABS: BUN Creatinine Ratio 11.2 (10-20); Creatinine Clr Calc Pharmacy 78.9 ml/min; Est GFR (African American) 96.3 ml/min; Est GFR (Non-African American) 83.1 ml/min
--- NOTE | 2023-11-27 09:29 | Anesthesiology Consultation ---
Date of Service November 27, 2023 Assessment & Plan (1) Encounter for pre-operative examination: Chart Review Chart Review: Acceptable Risk for Surgery History Surgery Operation Date: 11/27/23 10:40 Proposed Procedures p Incision and Drainage Perirectal Abscess - Evin Dumont MD Height/Weight Height: 5 ft 8 in Weight: 95 kg Allergies Allergy/AdvReac Type Severity Reaction Status Date / Time bee venom protein (honey bee) Allergy Severe Anaphylaxis Verified 11/26/23 12:48 No Known Drug Allergies Allergy 0 Verified 11/26/23 12:48 Medications Home Medications Medication Instructions Recorded Confirmed Last Taken omeprazole magnesium 20 mg 20 mg PO QAM 10/25/21 11/26/23 10/29/21 tablet,delayed release (Prilosec OTC) epinephrine 0.3 mg/0.3 mL 0.3 mg (0.3 mL) IM Q10M PRN 02/04/23 11/26/23 Unknown injection, auto-injector (EpiPen anaphylaxis #2 ea 2-Aleks) ergocalciferol (vitamin D2) 1,250 1,250 mcg PO .COMPLEX #12 caps 05/29/23 11/26/23 Unknown mcg (50,000 unit) capsule torsemide 5 mg tablet 5 mg PO QAM #90 tabs 08/05/23 11/26/23 Unknown sildenafil 100 mg tablet See Rx Instructions .Route 08/27/23 11/26/23 Unknown .COMPLEX #18 tabs simvastatin 40 mg tablet 40 mg PO HS #90 tabs 09/27/23 11/26/23 Unknown metoprolol succinate 50 mg 50 mg PO DAILY 11/26/23 11/26/23 Unknown tablet,extended release 24 hr Active Medications Generic Name Dose Route Start Last Admin Trade Name Freq PRN Reason Stop Dose Admin Heparin Sodium (Porcine) 5,000 units 11/26/23 22:00 11/26/23 20:37 Heparin Sod 5,000 Unit/0.5 Ml Vial SQ 12/26/23 21:59 Not Given Q8 WAQAS Hydromorphone HCl 0.5 mg 11/26/23 16:14 11/26/23 16:28 Hydromorphone Inj 0.5 Mg/0.5 Ml Syr IV 12/10/23 16:13 0.5 mg Q4H PRN Administration Moderate Pain (4,5,6) on NRS Hydromorphone HCl 1 mg 11/26/23 16:14 11/27/23 08:41 Hydromorphone Inj 1 Mg/Ml Syringe IV 12/10/23 16:13 1 mg Q4H PRN Administration Severe Pain (7,8,9,10) on NRS Piperacillin Sod/Tazobactam 100 mls @ 25 mls/hr 11/26/23 20:00 11/27/23 06:42 Sod 4.5 gm/ Dextrose IV 12/06/23 19:59 Infused Q8H WAQAS Infusion Protocol Magnesium Oxide 400 mg 11/26/23 16:00 11/27/23 02:30 Magnesium Oxide 400 Mg Tab PO 12/26/23 15:59 400 mg Q12H WAQAS Administration Metoprolol Succinate 50 mg 11/27/23 09:00 11/27/23 08:41 Metoprolol Succ 50mg Ext Rel Tab PO 12/27/23 08:59 50 mg DAILY WAQAS Administration Pantoprazole Sodium 40 mg 11/27/23 09:00 11/27/23 08:41 Pantoprazole 40 Mg Tab PO 12/27/23 08:59 40 mg QAM WAQAS Administration Potassium Chloride 20 meq 11/26/23 21:00 11/27/23 08:41 Potassium Chloride Crtab 20 Meq Tabcr PO 12/26/23 20:59 20 meq BID WAQAS Administration Simvastatin 40 mg 11/26/23 21:00 11/26/23 20:37 Simvastatin 40 Mg Tab PO 12/26/23 20:59 40 mg HS WAQAS Administration Sodium Chloride 1 gm 11/26/23 14:25 11/27/23 08:41 Sodium Chloride 1 Gm Tablet PO 12/26/23 14:24 1 gm BID WAQAS Administration Past Medical History Medical History (Updated 11/27/23 @ 09:30 by Srinath Fountain MD) Acute hyponatremia Essential hypertension Schatzki's ring of distal esophagus PSVT (paroxysmal supraventricular tachycardia) reason for metoprolol History of multiple pulmonary nodules worked up, no further workup needed History of colon polyps Hyperlipidemia Past Family History Family History Father Cancer Lung cancer Brother Cancer Mother Breast cancer Gallbladder disease Other No family history of adverse response to anesthesia Denies family history of Ovarian cancer Prostate cancer Heart disease Myocardial infarction Colorectal cancer Past Surgical History Surgical History History of colonoscopy last 07/2018 @ [facility] History of tooth extraction under local Social History Smoking Status: Current every day smoker Do You Dip or Chew Tobacco: No Hx Alcohol Use: Yes Alcohol type: beer alcohol intake frequency: 0-2 drinks per day Hx Substance Use: No substance use type: does not use Physical Exam Vital Signs Last Vital Signs Temp 36.7 C 11/27/23 07:50 Pulse 77 11/27/23 07:50 Resp 18 11/27/23 07:50 BP 148/74 H 11/27/23 07:50 Pulse Ox 96 11/27/23 07:50 O2 Del Method Room Air 11/27/23 08:57 O2 Flow Rate 0 11/26/23 16:39 Testing Laboratory Results 11/27/23 04:18 11/27/23 08:01 Urine Color Yellow 11/26/23 10:42 Urine Appearance Clear (Clear) 11/26/23 10:42 Urine pH 6.0 (4.5-7.5) 11/26/23 10:42 Ur Specific Somers 1.007 (1.000-1.030) 11/26/23 10:42 Urine Protein Trace (Negative) H 11/26/23 10:42 Urine Glucose (UA) Negative (Negative) 11/26/23 10:42 Urine Ketones Negative (Negative) 11/26/23 10:42 Urine Nitrite Negative (Negative) 11/26/23 10:42 Ur Leukocyte Esterase Negative (Negative) 11/26/23 10:42 Urine WBC (Auto) 0-5 /hpf (0-5) 11/26/23 10:42 Urine RBC (Auto) 0-2 /hpf (0-2) 11/26/23 10:42 U Hyaline Cast (Auto) 0-2 /lpf (0-2) 11/26/23 10:42 U Epithel Cells (Auto) 0-2 /hpf (0-2) 11/26/23 10:42 Urine Bacteria (Auto) None Seen (None Seen) 11/26/23 10:42
[2023-11-27] MEDS ORDERED: PROPOFOL IV EMULSION 10 MG/ML 20 ML VIAL IV ONE (10:15)
[2023-11-27] MEDS ORDERED: ONDANSETRON INJ 2 MG/ML 2 ML VIAL ONE (10:15)
[2023-11-27] MEDS ORDERED: fentaNYL citrate PF 100 MCG/2 ML VIAL ONE (10:15)
[2023-11-27] MEDS ORDERED: MIDAZOLAM HCL 1 MG/ML 2ML VIAL ONE (10:15)
[2023-11-27] MEDS ORDERED: DEXAMETHASONE SOD INJ 4 MG/ML VIAL ONE (10:15)
[2023-11-27] MEDS: LACTATED RINGER'S 1,000 ML IV SCH (10:35)
--- NOTE | 2023-11-27 10:38 | History & Physical Bridge Note ---
Date of Service November 27, 2023 History & Physical Bridge Note I have examined the patient, reviewed the History & Physical and in the interval since the performance of the History & Physical I have noted the following changes of clinical significance: no changes noted
[2023-11-27] MEDS ORDERED: fentaNYL citrate PF 100 MCG/2 ML VIAL IV PRN (10:52)
[2023-11-27] MEDS ORDERED: KETOROLAC 30 MG/ML VIAL IV PRN (10:52)
[2023-11-27] MEDS ORDERED: ATROPINE SULFATE 0.1 MG/ML 10ML SYR IV PRN (10:52)
[2023-11-27] MEDS ORDERED: ONDANSETRON INJ 2 MG/ML 2 ML VIAL IV PRN (10:52)
[2023-11-27] MEDS ORDERED: KETAMINE HCL 10MG/ML SYR ONE (11:05)
--- NOTE | 2023-11-27 11:25 | Post Operative Brief Note ---
Immediate Post Op Note Date of Surgery November 27, 2023 Pre & Post Diagnosis Operation Date: 11/27/23 10:40 Pre-Op Diagnosis: Perirectal Abscess Post-Op Diagnosis: Perirectal Abscess I identified the patient and participated in the time-out.: Yes Procedure Operation Date: 11/27/23 10:40 Actual Procedures p Incision and Drainage Perirectal Abscess(Not Applicable) - Evin Dumont MD Surgeon Evin Dumont MD [employer] Representative none Estimated Blood Loss 5 Findings Consistent with Post-Op Diagnosis
--- NOTE | 2023-11-27 11:27 | Operative Report ---
Post Operative Report Pre & Post Diagnosis Operation Date: 11/27/23 10:40 Pre-Op Diagnosis: Perirectal Abscess Post-Op Diagnosis: Perirectal Abscess I identified the patient and participated in the time-out.: Yes Procedure Operation Date: 11/27/23 10:40 Actual Procedures p Incision and Drainage Perirectal Abscess(Not Applicable) - Evin Dumont MD Surgeon Evin Dumont MD [employer] Design Layout Drafter none Estimated Blood Loss 5 Findings Consistent with Post-Op Diagnosis Specimens Cultures for anaerobic and aerobic Drains none Anesthesia Type General Complications none Description of Procedure patient was taken the operating room, placed supine on the operating table. A timeout was performed, perioperative antibiotics were administered, SCD boots were placed. After adequate anesthesia and analgesia was obtained, he was placed in lithotomy position was prepped and draped in the normal sterile fashion. Local anesthetic was injected into and around the area of the abscess. Crease incision was made with 15 blade scalpel in the right posterior aspect near the anus. Using a hemostat I was able to enter the abscess cavity. A large amount of purulent fluid was returned. Cultures were sent for aerobic and anaerobic. 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 The abscess cavity was flushed and irrigated. It was packed with half- inch packing. Dressings were applied. He tolerated the procedure without complication, was transferred in stable condition to the PACU. All instrument, needle, and sponge counts were correct at the end of the case. I attest to the content of the Intraoperative Record and any orders documented therein. Any exceptions are noted below.
[2023-11-27] MEDS: LIDOCAINE 1%/EPINEPHRINE 1:100,000 50 ML VIAL ONE (11:39)
--- NOTE | 2023-11-27 12:22 | Hospitalist Progress Note ---
Date of Service November 27, 2023 Assessment & Plan (1) Perirectal abscess: Plan: Patient had 5 days of gradually worsening rectal pain, with nighttime fevers and chills. No blood/melena in bowel movements. No purulent discharge in bowel movements. Leukocytosis of 16.8 on admission He did not meet sepsis criteria, and did not appear toxic I&D of perirectal abscess with Dr. Dumont on 11/27/2023 -- Per operative report, this was a horseshoe abscess extending around both sides of the posterior rectum. Large amount of purulent fluid was noted and cultures were sent. Abscess cavity flushed, irrigated, packed with half-inch packing. Dressings were applied. Continue Zosyn, last dose on 12/06/2023 Patient reported chills and had temperature of 99.8 F in the late afternoon of 11/27/2023. -- Continue with Tylenol and antibiotic. No other signs indicating systemic infection at this time, continue to monitor. (2) Hyponatremia: Plan: History of SIADH. Follows with nephrology. Has been on torsemide in the past but has not taken this for several days Sodium, potassium, and chloride were all depleted on admission. Hemoglobin mildly low? solute depletion versus dilution with free water retention, suspect the latter given history Fluid restricted to 1300 cc Continue salt tablets, potassium supplementation, magnesium supplementation Plan Repleted electrolytes Reviewed operative note Chronic stable issues Hyperlipidemia: Continue statin Intermittent chronic anemia: Hemoglobin ranging 13.315, hemoglobin 13.6 with a normal MCV, no evidence of acute hemodynamically significant bleeding. Repeat H&H daily. Hypertension: Continue Metoprolol DVT prophylaxis: SCDs, heparin TID. CODE STATUS: Full code Disposition: Medical telemetry due to history of SVT with admitting hypokalemia Admission and Anticipated Discharge Date Admission Date: November 26, 2023 Subjective Patient seen and evaluated at bedside postop. He had I&D of perirectal abscess with Dr. Dumont today, 11/27/2023. Per operative report, this was a horseshoe abscess extending around both sides of the posterior rectum, with a large amount of purulent fluid noted. Aerobic and anaerobic cultures were sent. Patient re ports he tolerated the procedure well. He denies any pain or discomfort at this time. He denies shortness of breath, difficulty breathing, chest pain, palpitations, dizziness, lightheadedness, or abdominal pain. In the late afternoon, patient had chills and temperature of 99.8 F. No additional complaints at this time. Physical Exam Physical Exam: General: No acute distress, nondiaphoretic, well-developed, well-nourished. Skin: The skin was without rashes, erythema, edema, or bruising. Cardiac: Regular rate and rhythm. Grade 2/6 systolic murmur. Pulm: Clear to auscultation bilaterally without wheezes, rales or rhonchi. No respiratory distress. Abdominal: Soft, nondistended, nontender. Bowel sounds present. Neuro: A&O x3. No focal neurological deficits. Results & Data Results & Data Vital Signs (Past 12 Hours) Vital Signs Temp Pulse Pulse Pulse Resp BP Pulse Ox 11/27/23 12:10 36.7 C 73 14 153/81 H 96 11/27/23 12:00 74 20 134/70 93 11/27/23 11:50 73 18 130/68 93 11/27/23 11:40 74 20 150/83 H 99 11/27/23 11:32 36.1 C L 80 14 147/71 H 93 11/27/23 10:25 36.6 C 69 18 148/80 H 96 11/27/23 08:57 11/27/23 07:50 36.7 C 77 18 148/74 H 96 11/27/23 02:46 36.7 C 80 20 146/74 H 94 O2 Del Method O2 Flow Rate 11/27/23 12:10 Nasal Cannula 2 11/27/23 12:00 Room Air 11/27/23 11:50 Room Air 11/27/23 11:40 Oxymask 4 11/27/23 11:32 Oxymask 6 11/27/23 10:25 Room Air 11/27/23 08:57 Room Air 11/27/23 07:50 Room Air 11/27/23 02:46 Room Air Laboratory Results Reviewed CBC Reviewed BMP PG Care Time/CCT Total # of Minutes Spent Total Time Spent with Patient: Total time spent is greater than 50% in coordination of care (as documented) at patient's floor/unit and/or counseling patient: Coding Level of Care Code 19523 SUB INP/OBS CARE 3/50MIN Diagnoses Perirectal abscess K61.1 Hyponatremia E87.1
--- NOTE | 2023-11-27 12:50 | Anesthesiology Progress Note ---
Date of Service November 27, 2023 Anesthesia Post Procedure Vital Signs Vital Signs: Temp Pulse Pulse Pulse Pulse Resp BP 11/27/23 12:36 36.7 C 76 16 11/27/23 12:20 74 16 11/27/23 12:10 36.7 C 73 14 11/27/23 12:00 74 20 11/27/23 11:50 73 18 11/27/23 11:40 74 20 11/27/23 11:32 36.1 C L 80 14 11/27/23 10:25 36.6 C 69 18 11/27/23 08:57 11/27/23 07:50 36.7 C 77 18 11/27/23 02:46 36.7 C 80 20 11/26/23 22:59 36.9 C 68 18 11/26/23 22:04 71 11/26/23 19:07 37.1 C 80 18 11/26/23 18:15 80 11/26/23 16:39 11/26/23 16:39 36.5 C 77 20 11/26/23 16:39 11/26/23 14:59 74 11/26/23 14:58 72 18 156/78 H 11/26/23 13:03 79 21 154/77 H BP Pulse Ox Pulse Ox O2 Del Method O2 Del Method O2 Flow Rate O2 Flow Rate 11/27/23 12:36 155/73 H 91 Room Air 11/27/23 12:20 137/73 95 Nasal Cannula 2 11/27/23 12:10 153/81 H 96 Nasal Cannula 2 11/27/23 12:00 134/70 93 Room Air 11/27/23 11:50 130/68 93 Room Air 11/27/23 11:40 150/83 H 99 Oxymask 4 11/27/23 11:32 147/71 H 93 Oxymask 6 11/27/23 10:25 148/80 H 96 Room Air 11/27/23 08:57 Room Air 11/27/23 07:50 148/74 H 96 Room Air 11/27/23 02:46 146/74 H 94 Room Air 11/26/23 22:59 144/76 H 95 Room Air 11/26/23 22:04 11/26/23 19:07 150/74 H 96 Room Air 11/26/23 18:15 06/11/24 16:39 Room Air 11/26/23 16:39 157/74 H 96 Room Air 11/26/23 16:39 96 Room Air 0 11/26/23 14:59 11/26/23 14:58 98 Room Air 11/26/23 13:03 98 Room Air Pain Intensity Rectal: Pain Intensity: 3 Transfer of Care Handoff Completed per policy Notes Mental Status: alert / awake / arousable Patient Amnestic to Procedure: Yes Nausea / Vomiting: adequately controlled Pain: adequately controlled Airway Patency, RR, SpO2: stable & adequate BP & HR: stable & adequate Hydration State: stable & adequate Anesthetic Complications: no major complications apparent
[2023-11-27 13:41] LABS: BUN Creatinine Ratio 11.2 (10-20); Calcium 9.4 mg/dl (8.6-10.3); Creatinine Clr Calc Pharmacy 71.7 ml/min; Est GFR (African American) 86.5 ml/min; Est GFR (Non-African American) 74.6 ml/min; Potassium 3.7 mmol/L (3.5-5.1)
[2023-11-27] MEDS: POTASSIUM CHLORIDE CRTAB 20 MEQ TABCR PO STA (16:04)
[2023-11-27] MEDS: ACETAMINOPHEN 325 MG TAB PO PRN (16:04)
[2023-11-28 06:41] LABS: Basophils # (auto) 0.05 K/uL (0.00-0.20); Basophils % (auto) 0.3 %; Eosinophils # (auto) 0.06 K/uL (0.00-0.50); Eosinophils % (auto) 0.3 %; Hematocrit (blood only) 38.2 % (42.0-52.0); Hemoglobin 13.1 g/dl (14.0-18.0); Immature Granulocytes # (auto) 0.17 K/uL (0.01-0.20); Immature Granulocytes % (auto) 0.9 %; Lymphocytes # (auto) 2.31 K/uL (1.20-3.40); Lymphocytes % (auto) 12.7 %; Mean Corpuscular Hemoglobin 31.3 pg (25.0-34.0); Mean Corpuscular Hgb Conc 34.3 g/dL (32.0-36.0); Mean Corpuscular Volume 91.4 fL (80.0-100.0); Mean Platelet Volume 9.2 fL (9.4-12.4); Monocytes # (auto) 1.56 K/uL (0.11-0.59); Monocytes % (auto) 8.6 %; Neutrophils # (auto) 14.01 K/uL (1.40-6.50); Neutrophils % (auto) 77.2 %; Platelet Count 432 K/uL (130-400); RDW Coefficient of Variation 11.8 % (11.5-14.5); RDW Standard Deviation 39.6 fL (36.4-46.3); Red Blood Count 4.18 M/uL (4.70-6.10); White Blood Count 18.16 K/ul (4.8-10.8)
[2023-11-28 06:56] LABS: BUN Creatinine Ratio 11.7 (10-20); Calcium 9.4 mg/dl (8.6-10.3); Creatinine Clr Calc Pharmacy 68.2 ml/min; Est GFR (African American) 81.4 ml/min; Est GFR (Non-African American) 70.2 ml/min; Potassium 3.7 mmol/L (3.5-5.1)
--- NOTE | 2023-11-28 08:06 | Hospitalist Progress Note ---
Date of Service November 28, 2023 Assessment & Plan (1) Perirectal abscess: Plan: 78 y/o man admitted with perirectal abscess. Underwent I&D by Dr. 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 Large amount of purulent fluid was noted and cultures were sent. Abscess cavity flushed, irrigated, packed with half-inch packing. Dressings were applied. -- gram stain with GPC, GNR, culture pending Continue pip-tazo --WBC increased to 18 but afebrile overnight and CBC appears hemoconcentrated, repeat CBC in a.m. --continue wound care, pain control -- exploring whether home health would be able to do wound care every 2 days, dubious that his would be able to assist based on what he says (2) Hyponatremia: Plan: History of SIADH. Follows with nephrology. Has been on torsemide, not taken this for several days [employer] REPAIRER --urine sodium appropriately low at 15 --Na normalizing 131-->134. stop salt tabs and fluid restriction, continue hold torsemide, AM BMP Plan hypokalemia replaced, resolved Chronic stable issues --hx SVT Hyperlipidemia: Continue statin Intermittent chronic anemia: Hemoglobin ranging 13.315, hemoglobin 13.6 with a normal MCV, no evidence of acute hemodynamically significant bleeding. Hgb improved - sample 11/26 may have been diluted Hypertension: Continue Metoprolol DVT prophylaxis: SCDs, heparin TID. Admission and Anticipated Discharge Date Admission Date: November 26, 2023 Subjective perirectal pain much improved after I&D, not taking any meds for pain since procedure he does not think his would be able to do the wound care, is squeamish etc had large stool output last 24h few episodes incontinence Physical Exam 2 Physical Exam: PHYSICAL EXAMINATION Last 24h vital signs reviewed, see documentation in flowsheet General: comfortable appearing, no distress, sitting on edge of the bed HEENT: Normocephalic, atraumatic, pupils round and equal, sclerae anicteric, no conjunctival injection, moist mucus membranes Lungs: Normal respiratory effort. Clear to auscultation bilaterally. No RRW Heart: Regular rate and rhythm, no murmurs. No JVD Abdomen: Soft, nontender, nondistended. Bowel sounds present. reviewed wound care photo 6 to 8 cm incision perirectal area no visible drainage no surrounding erythema Extremities: Warm, dry, well-perfused. No extremity edema. Neuro: Alert and oriented x 4, face symmetric, moves 4 extremities well Psych: Normal affect and behavior Results & Data Results & Data Vital Signs (Past 12 Hours) Vital Signs Temp Pulse Pulse Resp BP Pulse Ox O2 Del Method 11/28/23 07:58 36.6 C 72 18 123/65 96 Room Air 11/28/23 07:21 65 11/28/23 04:00 36.6 C 57 L 20 138/74 93 Room Air 11/27/23 23:25 81 11/27/23 23:00 37.4 C 80 16 128/68 93 Room Air Laboratory Results 11/28/23 05:31 11/28/23 05:31 PG Care Time/CCT Total # of Minutes Spent Total Time Spent with Patient: Total time spent is greater than 50% in coordination of care (as documented) at patient's floor/unit and/or counseling patient: Coding Level of Care Code 20303 SUB INP/OBS CARE 2/35MIN Diagnoses Perirectal abscess K61.1 Hyponatremia E87.1
[2023-11-28] MEDS ORDERED: oxyCODONE HCL IR 5 MG TAB (IMMEDIATE RELEASE) PO PRN (08:07)
[2023-11-28] MEDS ORDERED: HYDROmorphone INJ 0.5 MG/0.5 ML SYR IV PRN (08:09)
[2023-11-28] MEDS: DOCUSATE SODIUM 100 MG CAP PO SCH (10:03)
--- NOTE | 2023-11-28 11:44 | Surgery Progress Note ---
Date of Service November 28, 2023 Assessment & Plan (1) Perirectal abscess: Plan: POD # 1 s/p I& of perirectal abscess postop pain controlled afebrile, leukocytosis up to 18 today Plan: will need packing changes at least every other day and follow-up with wound care given size of wound. Too close to anus for wound vac. Patient seen in collaboration with wound care nurmario. Will start process of home health nursing with consulting case management. Given increase in leukoytosis would recommend another day of IV abx while getting home health set up. Possibly home tomorrow. Admission and Anticipated Discharge Date Admission Date: November 26, 2023 Subjective feeling much better regarding pain since surgery no n,v tolerated some diet intake slight feverish last night incontinent of bowel last night able to urinate on own now Physical Exam Constitutional: WD/WN, vitals as above cooperative and comfortable; no acute distress and not ill appearing Gastrointestinal (Abdomen): External rectal exam: There is about a 3 cm incision to right of the anus that is about 5.2 cm deep. no surrounding induration or erythema. Skin: no rashes, warm and dry Results & Data Vital Signs (Past 12 Hours) Vital Signs Temp Pulse Pulse Resp BP Pulse Ox O2 Del Method 11/28/23 07:58 36.6 C 72 18 123/65 96 Room Air 11/28/23 07:21 65 11/28/23 04:00 36.6 C 57 L 20 138/74 93 Room Air Laboratory Results 11/28/23 11/27/23 11/27/23 Range/Units 05:31 Unknown 13:03 WBC 18.16 H (4.8-10.8) K/ul RBC 4.18 L (4.70-6.10) M/uL Hgb 13.1 L (14.0-18.0) g/dl Hct 38.2 L (42.0-52.0) % MCV 91.4 (80.0-100.0) fL MCH 31.3 (25.0-34.0) pg MCHC 34.3 (32.0-36.0) g/dL RDW Std Deviation 39.6 (36.4-46.3) fL RDW Coeff of Howard 11.8 (11.5-14.5) % Plt Count 432 H (130-400) K/uL MPV 9.2 L (9.4-12.4) fL Immature Gran % (Auto) 0.9 % Neut % (Auto) 77.2 % Lymph % (Auto) 12.7 % Brooks % (Auto) 8.6 % Eos % (Auto) 0.3 % Baso % (Auto) 0.3 % Neut # (Auto) 14.01 H (1.40-6.50) K/uL Lymph # (Auto) 2.31 (1.20-3.40) K/uL Brooks # (Auto) 1.56 H (0.11-0.59) K/uL Eos # (Auto) 0.06 (0.00-0.50) K/uL Baso # (Auto) 0.05 (0.00-0.20) K/uL Immature Gran # (Auto) 0.17 (0.01-0.20) K/uL Sodium 134 L 131 L (136-145) mmol/L Potassium 3.7 3.7 D (3.5-5.1) mmol/L Chloride 97 L 95 L (98-107) mmol/L Carbon Dioxide 29 28 (21-32) mmol/L Anion Gap 8 8 (3-11) BUN 12 11 (6-23) mg/dl Creatinine 1.03 0.98 (0.6-1.4) mg/dl Est Cr Clr Drug Dosing 68.2 71.7 ml/min Est GFR ( Amer) 81.4 86.5 ml/min Est GFR (Non-Af Amer) 70.2 74.6 ml/min BUN/Creatinine Ratio 11.7 11.2 (10-20) Glucose 107 H 130 H (70-99(Fasting)) mg/dl Calcium 9.4 9.4 (8.6-10.3) mg/dl Urine Osmolality 317 L (500-800) mOsm/kg Ur Random Sodium 15 mmol/L Microbiology 11/27/23 10:17 Gram Stain - Final Rectal Abscess
[2023-11-29 07:04] LABS: Basophils # (auto) 0.05 K/uL (0.00-0.20); Basophils % (auto) 0.6 %; Eosinophils # (auto) 0.28 K/uL (0.00-0.50); Eosinophils % (auto) 3.4 %; Hematocrit (blood only) 33.1 % (42.0-52.0); Hemoglobin 11.5 g/dl (14.0-18.0); Immature Granulocytes # (auto) 0.18 K/uL (0.01-0.20); Immature Granulocytes % (auto) 2.2 %; Lymphocytes # (auto) 1.53 K/uL (1.20-3.40); Lymphocytes % (auto) 18.6 %; Mean Corpuscular Hemoglobin 31.3 pg (25.0-34.0); Mean Corpuscular Hgb Conc 34.7 g/dL (32.0-36.0); Mean Corpuscular Volume 89.9 fL (80.0-100.0); Monocytes # (auto) 0.74 K/uL (0.11-0.59); Neutrophils # (auto) 5.44 K/uL (1.40-6.50); Neutrophils % (auto) 66.2 %; Platelet Count 346 K/uL (130-400); RDW Coefficient of Variation 11.6 % (11.5-14.5); RDW Standard Deviation 38.5 fL (36.4-46.3); Red Blood Count 3.68 M/uL (4.70-6.10); White Blood Count 8.22 K/ul (4.8-10.8)
[2023-11-29 07:26] LABS: BUN Creatinine Ratio 13.1 (10-20); Calcium 8.9 mg/dl (8.6-10.3); Creatinine Clr Calc Pharmacy 70.7 ml/min; Est GFR (African American) 85.4 ml/min; Est GFR (Non-African American) 73.7 ml/min; Potassium 3.4 mmol/L (3.5-5.1)
[2023-11-29 08:30] LABS: Ferritin 292.4 ng/ml (8-388)
--- NOTE | 2023-11-29 14:48 | Discharge Summary ---
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 CTA/P shows perirectal abscess. He has a leukocytosis of 16.82. Renal function is at baseline Sodium, potassium, and chloride are all low. Sodium 125 with BSG of 130 with history of SIADH. UA is bland. Surgery was consulted for drainage of perirectal abscess. He is recommended for medical admission due to medical comorbidities/age/ 5 days rectal pain, gradually worsening. No blood/melena in BMs. No pus or discharge in BMs. No prior hx of similar symptoms. No hx of colorectal problems 'just came up all of a sudden.' 3 of the last few nights had fevers at night with sweats and chills. NO chest pain or chest pressure. No history of kidney problems. No history of DM2. No history of blood clots or bleeding problems. No medication allergies. No nausea or vomiting Last meal was last night. No aspirin or blood thinner use. History of low sodium. Normally ~134. Takes torsemide for this, has not taken in ~4 days, Principal Diagnosis Perirectal abscess Discharge Exam PHYSICAL EXAMINATION Last 24h vital signs reviewed, see documentation in flowsheet General: sitting on EOB per his habit HEENT: Normocephalic, atraumatic, pupils round and equal, sclerae anicteric, no conjunctival injection, moist mucus membranes Lungs: Normal respiratory effort. Heart: def Abdomen: Soft, nondistended. Extremities: Warm, dry, well-perfused. No extremity edema. Neuro: Alert and oriented x 4, face symmetric, moves 4 extremities well Psych: Normal affect and behavior Discharge Data Allergies Allergy/AdvReac Type Severity Reaction Status Date / Time bee venom protein (honey bee) Allergy Severe Anaphylaxis Verified 11/26/23 12:48 No Known Drug Allergies Allergy 0 Verified 11/26/23 12:48 Consultations 11/26/23 13:51 ED Decision to Admit Stat 11/26/23 16:10 Consult General Surgery Routine Procedures Performed Operation Date: 11/27/23 10:40 Actual Procedures p Incision and Drainage Perirectal Abscess(Not Applicable) - Evin Dumont MD Ordered Studies 11/26/23 11:09 CT abd pelvis IV con only Stat Abdomen/Pelvis CT 11/26/23 11:09 CT abd pelvis IV con only CLINICAL HISTORY: jessica-rectal/anal abscess, fevers TECHNIQUE: Helical axial images of the abdomen and pelvis were obtained and displayed. Automated dose lowering techniques and/or adjustment according to patient size were utilized for this exam. This exam was performed with intravenous contrast. CT DOSE: 1372.87 mGy.cm COMPARISON: Comparison is made to CT chest 09/29/2015 FINDINGS: Lower chest: Pleural plaques are seen. Liver: A likely hemangioma is seen in the caudate lobe. This is similar to prior CT chest. Gallbladder and biliary tree: Cholelithiasis is seen without evidence of cholecystitis. No intra- or extrahepatic biliary ductal dilation. Pancreas: Unremarkable, no focal lesions. Spleen: Unremarkable. Adrenals: Unremarkable. Kidneys and ureters: Perinephric stranding is noted bilaterally. Bladder: Unremarkable. Reproductive organs: Unremarkable. Bowel: A hiatal hernia is seen. A duodenal diverticulum is seen. The appendix is normal. There is a complex fluid collection in the posterior aspect of the rectum measuring up to 38 mm in diameter, with rim enhancement. Lymph nodes Retroperitoneal: Unremarkable. Pelvic: Unremarkable. Mesenteric: Unremarkable. Peritoneum: Mild peritoneal stranding is seen. Vessels: Atherosclerotic calcifications are seen. Abdominal wall: Unremarkable. Bones: Degenerative changes in the visualized spine. IMPRESSION: 1. Findings are compatible with perirectal abscess. 2. Partially visualized but essentially stable hepatic hemangioma. 3. Calcified pleural plaques are seen. 4. Additional findings as above. ACT 112: Negative or not required by law. Electronically signed by: Bob Hoyos M.D. 11/26/2023 12:45 PM 11/29/23 06:27 11/29/23 06:27 Hospital Course (1) Perirectal abscess: 78 y/o man admitted with perirectal abscess. Underwent I&D by Dr. 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 Large amount of purulent fluid was noted and cultures were sent. Abscess cavity flushed, irrigated, packed with half-inch packing. Dressings were applied. -- gram stain with GPC, GNR, culture pending --leukocytosis resolved treated in hospital with pip-tazo, continue with 7 days augmentin as outpatient, discussed with surgery team --follow up with wound care center in 1 week and with surgeon in 2 weeks, other days will have home health visit to teach/supervise qod dressing changes (2) Hyponatremia: History of SIADH. Follows with nephrology. 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 mag ox caused diarrhea. trial slow mag daily to bid once bowel habits normalized Chronic stable issues --hx SVT Hyperlipidemia: Continue statin Intermittent chronic anemia: Hemoglobin ranging 13.315, hemoglobin 13.6 with a normal MCV, no evidence of acute hemodynamically significant bleeding. Hgb improved - sample 11/26 may have been diluted Hypertension: Continue Metoprolol Total Time Total Time Spent Total Time Spent (In Minutes): I personally spent: 40 minutes today on clinical care activities including: reviewing chart notes and vital signs reviewing labs discussion with fitness consultant(s) discussion with nurse wound care examining and counseling the patient writing orders: Home health, prescriptions, discharge instructions documentation Discharge Plan Discharge Items Patient Disposition: Home - Home Health Services Reason For Visit: PERIRECTAL ABSCESS, HX SVT, HYPONATREMIA Discharge Diagnosis: perirectal abscess Activity: Per Instructions section Non-emergency contact: Primary Care Provider and Surgeon Call non-emergency contact if: you have any medication questions, your symptoms worsen and you have a fever Follow-up/Referrals: Madie Kraft DO [Primary Care Provider] - 12/03/23 11:30 am Diet: Regular Addtl Attending Provider Instructions: Your white blood count was back to normal today (8) Take antibiotic for one more week Follow up with surgery clinic in 2 weeks For antibiotic associated diarrhea: Take a probiotic for 2-4 weeks - this is available over the counter, follow the instructions on the bottle You can take immodium 2 mg orally as needed - this is available over the counter, follow the instructions on the bottle. Don't take so much that you become constipated, its better to have soft to loose stool for now Your blood magnesium level runs a little low. After you're healed up from the abscess and your bowel function is normal you could try taking 1 tablet of extended release magnesium ("slow-mag") daily as a supplement. We saw in the hospital that the other form of magnesium (magnesium oxide) gives you diarrhea This website lists magnesum-rich foods: https://my.[facility] [facility].org/health/articles/20585-clbqnbopy-zkut-abpq Addtl Software Publisher Provider Instructions: ACTIVITY RECOMMENDATIONS: * No heavy lifting for 1 week. MEDICATIONS: Resume previous medications unless instructed otherwise by your surgeon. * Extra Strength Tylenol 500 - 1000 mg every 4 hours, as needed for pain * Ibuprofen 600 mg every 6 hours, as needed for pain SPECIAL CARE INSTRUCTIONS: * Remove outer dressing as needed and at least daily to keep clean and dry. * Packing gauze strip is placed into wound, keep packing in the wound. This will be changed by home health nurses every other day * Shower or sitz bath 3 times per day and after each bowel movement to keep area clean. * Call the surgeon's office with any questions or concerns - (ex. temperature higher than 101 degrees F, excessive bleeding or pain). FOLLOW UP VISIT: Scheduled for wound care follow-up at [facility] on 12/09/23 at 9:00 am. Pending Studies at Discharge: Yes (cultures from abscess) Stand-Alone Forms: My [facility] [employer], Smoking Cessation Medications and DC Order Prescriptions: New amoxicillin-pot clavulanate 875-125 mg tablet 1 tab PO BID Qty: 14 0RF Continued ergocalciferol (vitamin D2) 1,250 mcg (50,000 unit) capsule 1,250 mcg PO .COMPLEX Qty: 12 0RF Rx Instructions: One capsule PO monthly as maintenance dosing; torsemide 5 mg tablet 5 mg PO QAM Qty: 90 3RF sildenafil 100 mg tablet See Rx Instructions .ROUTE .COMPLEX Qty: 18 0RF Dose Instruction: TAKE 1 TABLET DAILY NEEDED FOR SEXUAL ACTIVITY Rx Instructions: TAKE 1 TABLET DAILY NEEDED FOR SEXUAL ACTIVITY simvastatin 40 mg tablet 40 mg PO HS Qty: 90 3RF Rx Instructions: TAKE 1 TABLET AT BEDTIME epinephrine [EpiPen 2-Aleks] 0.3 mg/0.3 mL auto-injector 0.3 mg IM Q10M PRN (Reason: anaphylaxis) Qty: 2 0RF Rx Instructions: for 2 doses omeprazole magnesium [Prilosec OTC] 20 mg Tablet,Delayed Release (Dr/Ec) 20 mg PO QAM metoprolol succinate 50 mg tablet extended release 24 hr 50 mg PO DAILY Rx Instructions: TAKE 1 TABLET BY MOUTH DAILY Discharge Orders: Discharge Order (Routine); Ordered 11/29/23 Ordered By: Wandy Lewis/Other Patient Handouts: Understanding Perianal Abscess Admission Data Admit Date/Time: 11/26/23 14:07 Attending Provider: Wandy Collins Admit Provider: Wilfred Barahona Primary Care Provider: Madie Kraft Other Providers: Wilfred Barahona; Evin Dumont; [facility] Other Interventions: Discharge Summary Assessment (RN) Last Done: 11/29/23 13:51 Coding Level of Care Code 25628 INP/OBS DISCH >30 MIN Diagnoses Perirectal abscess K61.1 Hyponatremia E87.1 Home Health Attestation I certify that this patient is under my care and that I, or a physicians library technical assistant working with me, had a face to-face encounter that meets the home health [id number] encounter requirements with this patient. The encounter with the patient was in whole, or in part, for the following medical condition, which is the primary reason for home health care (list medical condition): wound care and teaching; QOD dsg; wound clinic f/u 12/08 I certify that, based on my findings, the following services are medically necessary home health services: My clinical findings support the need for the above services because: Skilled Nsg Assessment Skilled Nsg Assessment Surgical Incision / Wound Skilled Nsg to Assess, Perform and Teach Wound Care S/S to Report to Provider Teach on Disease Management and Interventions Further, I certify that my clinical findings support that this patient is homebound (i.e. absences from home require considerable and taxing effort and are for medical reasons or restorationism services or infrequently or of short duration when for other reasons) because: Transportation Assistance/Unable to Leave Home Unassisted Certification for Home Health Services: Based on the above findings, I certify that this patient is confined to the home and needs intermittent care home care, physical therapy and/or speech therapy or continues to need occupational therapy. The patient is under my care, and I have initiated the establishment of the plan of care. This patient will be followed by a physician who will periodically review the plan of care.
== END 2023-11-29 16:16 | disposition home health service (06) | DRG 394 ==
LOC: ED 10:33 → SUATTDRO 14:07 → 2N 14:07

== ENCOUNTER 2024-01-03 14:20 | Inpatient (IN) ==
--- NOTE | 2024-01-03 14:52 | XRay Report ---
SINGLE VIEW CHEST CLINICAL HISTORY: Generalized weakness FINDINGS: A PA chest radiograph is compared to study dated 04/12/2020. The heart is mildly enlarged n oting atherosclerotic calcification of the thoracic aorta. The pulmonary vasculature is noncongested. Calcified pleural plaques are similar to prior studies and consistent with asbestos-related pleural disease. No airspace consolidation or pleural effusion is identified. No pneumothorax is seen. The sk eletal structures are osteopenic. The bony thorax is grossly intact. IMPRESSION: Mild cardiomegaly with no active disease in the chest. ACT 112: Negative or not required by law. Electronically signed by: Trenton Anderson M.D. 01/03/2024 2:51 PM
[2024-01-03 17:12] LABS: Basophils # (auto) 0.09 K/uL (0.00-0.20); Basophils % (auto) 0.4 %; Eosinophils # (auto) 0.03 K/uL (0.00-0.50); Eosinophils % (auto) 0.1 %; Hematocrit (blood only) 35.5 % (42.0-52.0); Hemoglobin 12.8 g/dl (14.0-18.0); Immature Granulocytes # (auto) 0.32 K/uL (0.01-0.20); Immature Granulocytes % (auto) 1.6 %; Lymphocytes # (auto) 1.81 K/uL (1.20-3.40); Lymphocytes % (auto) 8.9 %; Mean Corpuscular Hemoglobin 31.5 pg (25.0-34.0); Mean Corpuscular Hgb Conc 36.1 g/dL (32.0-36.0); Mean Corpuscular Volume 87.4 fL (80.0-100.0); Mean Platelet Volume 9.5 fL (9.4-12.4); Monocytes # (auto) 2.11 K/uL (0.11-0.59); Monocytes % (auto) 10.4 %; Neutrophils # (auto) 15.95 K/uL (1.40-6.50); Neutrophils % (auto) 78.6 %; Platelet Count 521 K/uL (130-400); RDW Standard Deviation 38.7 fL (36.4-46.3); Red Blood Count 4.06 M/uL (4.70-6.10); White Blood Count 20.31 K/ul (4.8-10.8)
[2024-01-03 17:22] LABS: BUN Creatinine Ratio 13.8 (10-20); Calcium 7.8 mg/dl (8.6-10.3); Creatinine Clr Calc Pharmacy 62.2 ml/min; Est GFR (Non-African American) 65.6 ml/min; Potassium 2.7 mmol/L (3.5-5.1)
[2024-01-03 17:28] LABS: Troponin I High Sensitivity 5.7 pg/ml (0-20)
[2024-01-03 17:37] LABS: Thyroid Stimulating Hormone 1.312 uIu/ml (0.300-4.500)
[2024-01-03] MEDS: POTASSIUM CHLORIDE / WTR 10 MEQ/100 ML PLCT IV ONE (18:07)
[2024-01-03 18:11] LABS: Albumin Globulin Ratio 1.1 (0.9-2); Bilirubin,Total 0.5 mg/dl (0.2-1.0); Globulin 3.6 gm/dl (2.5-4.0); Magnesium 0.6 mg/dl (1.7-2.4); Phosphorus 2.8 mg/dl (2.5-4.9); Total Protein 7.6 gm/dl (6.0-8.3)
[2024-01-03 18:14] LABS: C Reactive Protein 1.91 mg/dl (0-0.5)
[2024-01-03] MEDS: MAGNESIUM SULFATE / D5W 1 GM/100 ML BAG IV ONE (18:39)
--- NOTE | 2024-01-03 18:41 | History & Physical Report ---
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 difficile infection STOP Immodium Lactate WNL Blood cultures obtained PCR stool ordered, pending C. difficile ordered, pending Contact isolation precautions Will start empirically on vancomycin 125mg p.o. Q6h A.m. CBC, BMP, mag (2) Hyponatremia: Plan: Na 126 on arrival SIADH labs ordered, pending If urine sodium elevated, fluid restrict Trend BMP q4h (3) Hypomagnesemia: Plan: Magnesium 0.6 on arrival Magnesium sulfate 1g IV x 5 overnight Hold omeprazole Trend magnesium q4h (4) Hypokalemia: Plan: K 2.7 on arrival K riders 10mEq x 4 + Potassium chloride 40mEq p.o. (total 80mEq) Trend BMP q4h (5) Hypocalcemia: Plan: Suspect secondary to hypomagnesemia affecting PTH release Replete hypomagnesemia, and continue to monitor (6) Perirectal abscess: Plan: s/p I&D on November 26 On clinical exam, no signs of reinfection or drainage If patient does not improve, or clinically deteriorates, would consider r eimaging (7) Leukocytosis: Plan Disposition: Admit to PCU telemetry Full code Regular diet VTE PPx: Heparin 5000u SQ q12h History of Present Illness Chief Complaint: Referred by Doctor for hypo-K and hypo-Mag Primary Care Provider: DO Salvatore Drake is a pleasant 78yo male with PMH of perirectal abscess, SIADH, bilateral sacroiliitis, hepatic hemangioma, and chronic fatigue syndrome. 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 Remote history of surgery for rectal abscess on November 26; discharged on Suha 14 on Augmentin. Patient has been following with wound care outpatient every week. He was then placed on Bactrim on 12/11 based on an outpatient wound culture. Patient's is at the bedside, and provides additional history. Of note, she has been worried about his gait recently. The patient does endorse feeling "rundown" over the past couple weeks. His only symptom has been diarrhea twice daily, but then he started taking Imodium earlier in the week and it subsided. Patient took his regular morning medications today; his only recent change in medication was starting on potassium pills 1 week ago. Patient has been off antibiotics for approximately 10 days. He is lost about 20 pounds since the operation. No prior history of C. difficile infections. No sick contacts. No supplemental oxygen at night. No prior history of hypomagnesemia or hypokalemia besides this past week. Patient denies smoking, tobacco use, or recent alcohol use. Patient is hypertensive at 143/73 at admission. ED Course: Magnesium sulfate 1 g IV x 3 K rider 10mEq IV x 1 ROS: Patient endorses diarrhea (ongoing since hospitalization, has a current twice daily; has been taking Imodium for the past week) Patient denies fever, chills, night-sweats, RICHARDSON, dizziness/lightheadedness, chest pain, SOB, abdominal pain, N/V, lower back pain, saddle anesthesia, burning with urination, blood in the urine/stool. Allergies Allergy/AdvReac Type Severity Reaction Status Date / Time bee venom protein (honey bee) Allergy Severe Anaphylaxis Verified 12/30/23 13:52 No Known Drug Allergies Allergy 0 Verified 12/30/23 13:52 Home Medications Medication Instructions Recorded Confirmed Type omeprazole magnesium 20 mg 20 mg PO QAM 10/25/21 01/03/24 History tablet,delayed release (Prilosec OTC) epinephrine 0.3 mg/0.3 mL 0.3 mg (0.3 mL) IM Q10M PRN 02/04/23 01/03/24 Rx injection, auto-injector (EpiPen anaphylaxis #2 ea 2-Aleks) ergocalciferol (vitamin D2) 1,250 1,250 mcg PO .COMPLEX #12 caps 05/29/23 01/03/24 Rx mcg (50,000 unit) capsule torsemide 5 mg tablet 5 mg PO QAM #90 tabs 08/05/23 01/03/24 Rx sildenafil 100 mg tablet See Rx Instructions .Route 08/27/23 01/03/24 Rx .COMPLEX #18 tabs simvastatin 40 mg tablet 40 mg PO HS #90 tabs 09/27/23 01/03/24 Rx metoprolol succinate 50 mg 50 mg PO DAILY 11/26/23 01/03/24 History tablet,extended release 24 hr lactobacillus combination no.9 4 4,000 mmu cells PO DAILY 12/09/23 01/03/24 History billion cell capsule (Adult 50 Plus Probiotic) potassium chloride 20 mEq 20 meq PO DAILY #90 tabs 12/27/23 01/03/24 Rx tablet,extended release Past Med/Surg History Problem List (Updated 01/03/24 @ 19:47 by Manuel Segal PA-C) Hypocalcemia Diarrhea Leukocytosis (Acute) Hyponatremia (Acute) Hypomagnesemia (Acute) Hypomagnesemia Surgical wound, non healing (Acute) Perirectal abscess Right ankle pain History of colon polyps Chronic fatigue syndrome (Acute) Elevated blood pressure reading in office with white coat syndrome, without diagnosis of hypertension (Acute) Hepatic hemangioma (Acute) Hypokalemia (Acute) Impaired fasting glucose (Acute) Male erectile disorder of organic origin (Acute) SIADH (syndrome of inappropriate ADH production) (Acute) Anemia H/O asbestos exposure Obesity Vitamin D deficiency Chronic GERD Bilateral sacroiliitis Medical History Acute hyponatremia Essential hypertension Schatzki's ring of distal esophagus PSVT (paroxysmal supraventricular tachycardia) reason for metoprolol History of multiple pulmonary nodules worked up, no further workup needed History of colon polyps Hyperlipidemia Surgical History History of colonoscopy last 07/2018 @ [facility] History of tooth extraction under local Family History Father Cancer Lung cancer Brother Cancer Mother Breast cancer Gallbladder disease Other No family history of adverse response to anesthesia Denies family history of Ovarian cancer Prostate cancer Heart disease Myocardial infarction Colorectal cancer Social History Smoking Status: Former smoker Tobacco Type: Cigarettes Age Started Using Tobacco: 22; Age Quit Using Tobacco: 47; Second Hand Exposure: Yes (parents smoked/ smokes); Do You Dip or Chew Tobacco: No; Hx Alcohol Use: Yes Alcohol type: beer Hx Substance Use: No Preferred Language: Bengali Communication Ability: Effective Visual Impairment: Limited Hearing Ability: Normal Production Director Required: No Beliefs That Will Affect Care: Uatsdin Uatsdin Beliefs: Uatsdin marital status: Current Living Situation: Spouse current occupational status: retired How many Children do You have: 3 Feels Safe at Home: Yes Childhood Exposure to Second-Hand Smoke: Yes caffeine: Yes Dental Care, Regularly: Yes Physical Activity Frequency: 1-2 Times per Week Seatbelt Use: always Sunscreen Use: Yes Assistive Devices: Glasses Review of Systems Review of Systems: See HPI above Physical Exam Physical Exam: General: no acute distress; non-toxic appearing; well-nourished; cooperative; SpO2 96% on RA HEENT: normocephalic, atraumatic; no scleral icterus; PERRLA; vision and hearing grossly intact Neck: supple; no lymphadenopathy; trachea midline Skin: warm, dry without signs of tenting; no cyanosis; no rashes, bruising, lesions, or erythema noted CV: chest wall NTP; RRR; S1/S2 normal; no murmurs/rubs/gallops; pulses intact and symmetric at radial, DP, and PT Lungs: no acute respiratory distress; symmetrical chest wall expansion; clear breath sounds across all lung mckinney w/o adventitious sounds; no wheezing ABD: Soft, NTP; BS present; no rebound/guarding; no distention; no rashes or bruising on the abdomen flanks or back Rectum: Wound is not visible on examination; no erythema or drainage from the rectum noted MSK: no tics or fasciculations; no edema noted in the LEs b/l, nonerythematous Neuro: A&Ox3; normal mood and affect; fluent speech; no focal deficits; sensation grossly intact in the LEs b/l Results & Data Results & Data Vital Signs (Past 12 Hours) Vital Signs Pulse Resp BP Pulse Ox O2 Del Method 01/03/24 17:19 66 01/03/24 17:19 96 Room Air 01/03/24 17:18 66 12 97 Room Air 01/03/24 17:13 143/73 H 01/03/24 14:24 74 20 129/70 96 Room Air Laboratory Results Abnormal lab results 01/03/24 Range/Units 16:23 WBC 20.31 H (4.8-10.8) K/ul RBC 4.06 L (4.70-6.10) M/uL Hgb 12.8 L (14.0-18.0) g/dl Hct 35.5 L (42.0-52.0) % MCHC 36.1 H (32.0-36.0) g/dL Plt Count 521 H (130-400) K/uL Neut # (Auto) 15.95 H (1.40-6.50) K/uL Citrus # (Auto) 2.11 H (0.11-0.59) K/uL Immature Gran # (Auto) 0.32 H (0.01-0.20) K/uL Sodium 126 L (136-145) mmol/L Potassium 2.7 L (3.5-5.1) mmol/L Chloride 89 L (98-107) mmol/L Anion Gap 12 H (3-11) Calcium 7.8 L (8.6-10.3) mg/dl Magnesium 0.6 L* (1.7-2.4) mg/dl C-Reactive Protein 1.91 H (0-0.5) mg/dl Diagnostic Findings Chest X-Ray 01/03/24 14:29 SINGLE VIEW CHEST CLINICAL HISTORY: Generalized weakness FINDINGS: A PA chest radiograph is compared to study dated 04/12/2020. The heart is mildly enlarged noting atherosclerotic calcification of the thoracic aorta. The pulmonary vasculature is noncongested. Calcified pleural plaques are similar to prior studies and consistent with asbestos-related pleural disease. No airspace consolidation or pleural effusion is identified. No pneumothorax is seen. The skeletal structures are osteopenic. The bony thorax is grossly intact. IMPRESSION: Mild cardiomegaly with no active disease in the chest. ACT 112: Negative or not required by law. Electronically signed by: Trenton Anderson M.D. 01/03/2024 2:51 PM ECG Additional Comments: ECG revealed NSR at 70 bpm; QTc 442 Code Status & VTE Plan Code Status Full code VTE Prophylaxis Plan VTE Prophylaxis will be ordered: Yes Supervising Physician Co-Signing Physician Notes Patient seen and examined, chart reviewed, case discussed with Manuel Segal PA-C and I agree with the assessment and plan as above except as otherwise noted Labs and images reviewed Salvatore is a 78-year-old male with a past medical history of SIADH, medic meningioma, perirectal abscess recently treated with I&D 11/26 abx. Referred to [facility] ER for mg <1, hypokalemia. Had a rectal abscess which was treated November 26. Was initially on Augmentin on D/C, then was switched to and completed a course of Bactrim based on sensitivities. Shortly thereafter developed liquid diarrhea, multiple episodes per day ~2-3. He has no abdominal pain or distension. No fever, chills, sweats. No cough, no chest congestion. Denies infectious symptoms. Urine sodium and osmolality pending. Last urine sodium was not elevated, appropriately conserved. Patient is volume contracted with episodes of diarrhea. He has no pain and no evidence of recurrent perirectal abscess. Abdomen is soft, nontender to light and deep palpation. Diarrhea post antibiotics is consistent with C. diff. Patient took 2 doses of Imodium, discontinue this and see if C. difficile can cause clinical worsening/toxin binding. Started empirically on vancomycin pending test results. If C. difficile is negative, then will need to expand CTA/P with contrast to reevaluate for intra-abdominal pathology given high leukocytosis and recent abscess with drainage despite having a otherwise benign abdomen. He does not have any other infectious symptoms including meningeal symptoms or respiratory symptoms. Blood cultures are pending. He has no transaminitis or thrombocytopenia. Aggressive electrolyte repletion. Sodium studies pending to evaluate for underlying SIADH, clinically volume contracted and agree with fluid resuscitation at this time. Oral and IV potassium resuscitation has been ordered. Patient is critically hypomagnesemic at 0.6, progressive IV resuscitation with repeat magnesium in 4 hours is pending. Hypocalcemia is likely due to concurrent hypomagnesemia, will trend. Agree with above PG Care Time/CCT Total # of Minutes Spent Total Time Spent with Patient: Total time spent is greater than 50% in coordination of care (as documented) at patient's floor/unit and/or counseling patient: [place] [address] INT INP/OBS CARE 3/75MIN Patient Type Established History Comprehensive Exam Comprehensive Medical Decision Making High Complexity Diagnoses Diarrhea R19.7 Hyponatremia E87.1 Hypomagnesemia E83.42 Hypokalemia E87.6 Hypocalcemia E83.51 Perirectal abscess K61.1 Leukocytosis D72.829
[2024-01-03 18:46] LABS: Appearance Urine Clear (Clear); Bilirubin Urine Negative (Negative); Blood Urine Negative (Negative); Color Urine Yellow; Glucose Urine UA Negative (Negative); Ketones Urine Negative (Negative); Leukocyte Esterase Urine Negative (Negative); Nitrite Urine Negative (Negative); Protein Urine Negative (Negative); Specific Gravity Urine 1.007 (1.000-1.030); Urobilinogen Urine Negative (Negative)
--- NOTE | 2024-01-03 18:59 | Emergency Department Note ---
Impression & Plan Hypomagnesemia, Hypokalemia, Hyponatremia, Leukocytosis ED Provider Note NAME: ANTONIO PACHECO AGE: 78 SEX: Male INFORMANT: Patient ED PROVIDER(S): Juan C Rich MD CHIEF COMPLAINT: Referred by For abnormal labs PLAN: Disposition: Admitted Outpatient prescription management: none Referral: None MEDICAL DECISION MAKING: Patient presented because of reports of outpatient hypokalemia and hypomagnesemia. Patient notes chronic hyponatremia. IV established and blood work obtained. Patient does have hypomagnesemia, hyponatremia, and hypokalemia. He was also found to have very elevated white blood cell count. Patient does not have any findings on abdominal examination or rectal examination. He notes no fevers. Blood cultures obtained. Procalcitonin elevated. Patient does note diarrhea and stool testing was ordered but is not back at this time. IV magnesium and potassium started. Further management in the hospital will be necessary. Consultation was made with Dr. Wilfred Barahona of the [facility] service. Patient was evaluated in the ER for further management. Care/management discussed with: health safety manager Level of care consideration(s): After review of the information above and other included data, I feel the patient requires escalation of care to admission Triage Nursing notes: reviewed and agree them. Vital Signs: reviewed and remarkable for no significant abnormalities Additional History obtained from: none Chronic Medical/Social Conditions affecting care: Chronic hyponatremia Prior/ Outside/ External records reviewed: none Differential Diagnosis: Infection, dehydration, metabolic abnormality, hypo/hyperglycemia, electrolyte disturbance, anemia, hypoxia, cardiac sources, intracerebral event, toxicologic, neurologic, as well as other pathologies. Diagnostics, independently interpreted by me: ECG: none Cardiac Monitoring: Cardiac monitoring ordered by me: The patient was placed on continuous cardiac monitoring and observed. It revealed a normal sinus rhythm at 66 beats per minute without ectopy or evidence of dysrhythmia. Medical decision rules: none Imaging studies: Deferred HPI: 78 year old Male arrives for evaluation of abnormal labs. Patient was referred by his automatic pilot mechanic, Dr. Mccrary. Patient has history of chronic hyponatremia. He has been monitored as an outpatient and his electrolytes were decreasing. He had labs done yesterday and was told that his magnesium was critically low and his potassium was low as well. He was referred to the ER today for treatment. Patient was recently admitted and had surgery for rectal abscess. He states that it is healing well and he saw his surgeon yesterday and they were pleased with his recovery. Patient denies any new rectal pain. He has been having diarrhea though. Patient does note being on antibiotics previously. Pt denies headache, fevers, chills, diaphoresis, visual changes, neck pain, chest pain, breathing difficulties, nausea, vomiting, abdominal pain, back pain, melena, hematochezia, urinary symptoms, numbness, focal weakness, lymphadenopathy, rash, or other complaints. PAST MEDICAL HISTORY: See Below, GERD PAST SURGICAL HISTORY: See Below, SOCIAL HISTORY: See Below, retired HOME MEDICATIONS: See Below ALLERGIES: See Below VITALS: See Below PHYSICAL EXAMINATION: GENERAL: Awake, alert, nontoxic-appearing, in no distress HENT: Normocephalic, atraumatic. Oropharynx unremarkable. EYES: Normal conjunctiva. Sclera non-icteric. NECK: Inspection normal. Non-tender. Supple. No nuchal rigidity. FROM. No masses. RESPIRATORY: Clear to auscultation. No wheezes. No rales. Normal respiratory effort. CARDIAC: Normal rate. Normal rhythm. No murmurs. No rubs. Extremities warm and well perfused. Pulses equal. No JVD. GI: Soft, non-distended. No tenderness to palpation. No rebound or guarding. No masses. RECTAL: Reveals no induration, tenderness or erythema. No drainage. MUSCULOSKELETAL: Atraumatic. Chest examination reveals no tenderness. The back is symmetrical on inspection without obvious abnormality. There is no CVA tenderness to palpation. No joint edema. LOWER EXTREMITIES: Calves are equal size bilaterally and non-tender. No edema. No discoloration. NEURO: Normal sensorium. No sensory or motor deficits noted. SKIN: No rash or jaundice noted. 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) (Acute) Anemia H/O asbestos exposure Obesity Vitamin D deficiency Chronic GERD Bilateral sacroiliitis Medical History Acute hyponatremia Essential hypertension Schatzki's ring of distal esophagus PSVT (paroxysmal supraventricular tachycardia) reason for metoprolol History of multiple pulmonary nodules worked up, no further workup needed History of colon polyps Hyperlipidemia Surgical History History of colonoscopy last 07/2018 @ [facility] History of tooth extraction under local Family History Father Cancer Lung cancer Brother Cancer Mother Breast cancer Gallbladder disease Other No family history of adverse response to anesthesia Denies family history of Ovarian cancer Prostate cancer Heart disease Myocardial infarction Colorectal cancer Social History Smoking Status: Former smoker Tobacco Type: Cigarettes Age Started Using Tobacco: 22; Age Quit Using Tobacco: 47; Second Hand Exposure: Yes (parents smoked/ smokes); Do You Dip or Chew Tobacco: No; Hx Alcohol Use: Yes Alcohol type: beer Hx Substance Use: No Preferred Language: Welsh Communication Ability: Effective Visual Impairment: Limited Hearing Ability: Normal Staff [employer] Officer Required: No Beliefs That Will Affect Care: Faith Faith Beliefs: Anabaptist marital status: Current Living Situation: Spouse current occupational status: retired How many Children do You have: 3 Feels Safe at Home: Yes Childhood Exposure to Second-Hand Smoke: Yes caffeine: Yes Dental Care, Regularly: Yes Physical Activity Frequency: 1-2 Times per Week Seatbelt Use: always Sunscreen Use: Yes Assistive Devices: Glasses Allergies Allergies Allergy/AdvReac Type Severity Reaction Status Date / Time bee venom protein (honey bee) Allergy Severe Anaphylaxis Verified 12/30/23 13:52 No Known Drug Allergies Allergy 0 Verified 12/30/23 13:52 Home Meds Home Medications Medication Instructions Recorded Confirmed omeprazole magnesium 20 mg 20 mg PO QAM 10/25/21 01/03/24 tablet,delayed release (Prilosec OTC) metoprolol succinate 50 mg 50 mg PO DAILY 11/26/23 01/03/24 tablet,extended release 24 hr lactobacillus combination no.9 4 4,000 mmu cells PO DAILY 12/09/23 01/03/24 billion cell capsule (Adult 50 Plus Probiotic) Previous Rx's Medication Instructions Recorded epinephrine 0.3 mg/0.3 mL 0.3 mg (0.3 mL) IM Q10M PRN 02/04/23 injection, auto-injector (EpiPen anaphylaxis #2 ea 2-Aleks) ergocalciferol (vitamin D2) 1,250 1,250 mcg PO .COMPLEX #12 caps 05/29/23 mcg (50,000 unit) capsule torsemide 5 mg tablet 5 mg PO QAM #90 tabs 08/05/23 sildenafil 100 mg tablet See Rx Instructions .Route 08/27/23 .COMPLEX #18 tabs simvastatin 40 mg tablet 40 mg PO HS #90 tabs 09/27/23 potassium chloride 20 mEq 20 meq PO DAILY #90 tabs 12/27/23 tablet,extended release Results & Data (ED) Vital Signs Vital Signs - 24 hr 01/03/24 14:24 01/03/24 17:13 01/03/24 17:18 Pulse Rate 74 66 Pulse Rate from SpO2 Sensor 66 Pulse Rhythm Regular Pulse Strength Normal Respiratory Rate 20 12 Respiratory Effort / Characteristics Non-Labored Spontaneous Respiratory Depth Normal Blood Pressure 129/70 143/73 H Blood Pressure Mean 89 101 Blood Pressure Position Sitting Pulse Oximetry 96 97 Oxygen Delivery Method Room Air Room Air Sepsis Recent Fever Within 48 Hours No Sepsis New/Unexplained Change in Mental Status N/A Sepsis Action Taken by Nursing No Action Required 01/03/24 17:19 01/03/24 17:19 01/03/24 17:39 Pulse Rate 66 85 Pulse Rate from SpO2 Sensor 82 Pulse Rhythm Pulse Strength Respiratory Rate 24 Respiratory Effort / Characteristics Respiratory Depth Blood Pressure Blood Pressure Mean Blood Pressure Position Pulse Oximetry 96 98 Oxygen Delivery Method Room Air Sepsis Recent Fever Within 48 Hours Sepsis New/Unexplained Change in Mental Status Sepsis Action Taken by Nursing 01/03/24 18:15 01/03/24 18:33 01/03/24 19:09 Pulse Rate 74 90 76 Pulse Rate from SpO2 Sensor 73 84 Pulse Rhythm Pulse Strength Respiratory Rate 16 14 15 Respiratory Effort / Characteristics Respiratory Depth Blood Pressure 127/71 Blood Pressure Mean 89 Blood Pressure Position Pulse Oximetry 99 99 99 Oxygen Delivery Method Room Air Sepsis Recent Fever Within 48 Hours Sepsis New/Unexplained Change in Mental Status Sepsis Action Taken by Nursing Laboratory Data 01/03/24 16:23 01/03/24 16:23 Lab Results 01/03/24 01/03/24 Range/Units 16:23 18:10 WBC 20.31 H (4.8-10.8) K/ul RBC 4.06 L (4.70-6.10) M/uL Hgb 12.8 L (14.0-18.0) g/dl Hct 35.5 L (42.0-52.0) % MCV 87.4 (80.0-100.0) fL MCH 31.5 (25.0-34.0) pg MCHC 36.1 H (32.0-36.0) g/dL RDW Std Deviation 38.7 (36.4-46.3) fL RDW Coeff of Howard 12.0 (11.5-14.5) % Plt Count 521 H (130-400) K/uL MPV 9.5 (9.4-12.4) fL Immature Gran % (Auto) 1.6 % Neut % (Auto) 78.6 % Lymph % (Auto) 8.9 % [place] % (Auto) 10.4 % Eos % (Auto) 0.1 % Baso % (Auto) 0.4 % Neut # (Auto) 15.95 H (1.40-6.50) K/uL Lymph # (Auto) 1.81 (1.20-3.40) K/uL [place] # (Auto) 2.11 H (0.11-0.59) K/uL Eos # (Auto) 0.03 (0.00-0.50) K/uL Baso # (Auto) 0.09 (0.00-0.20) K/uL Immature Gran # (Auto) 0.32 H (0.01-0.20) K/uL Sodium 126 L (136-145) mmol/L Potassium 2.7 L (3.5-5.1) mmol/L Chloride 89 L (98-107) mmol/L Carbon Dioxide 25 (21-32) mmol/L Anion Gap 12 H (3-11) BUN 15 (6-23) mg/dl Creatinine 1.09 (0.6-1.4) mg/dl Est Cr Clr Drug Dosing 62.2 ml/min Est GFR ( Amer) 76.0 ml/min Est GFR (Non-Af Amer) 65.6 ml/min BUN/Creatinine Ratio 13.8 (10-20) Glucose 95 (70-99(Fasting)) mg/dl Lactate 1.6 (0.4-2.0) mmol/L Calcium 7.8 L (8.6-10.3) mg/dl Phosphorus 2.8 (2.5-4.9) mg/dl Magnesium 0.6 L* (1.7-2.4) mg/dl Total Bilirubin 0.5 (0.2-1.0) mg/dl AST 14 (13-39) U/L ALT 10 (7-52) U/L Alkaline Phosphatase 62 (34-104) U/L Troponin I High Sens 5.7 (0-20) pg/ml C-Reactive Protein 1.91 H (0-0.5) mg/dl Total Protein 7.6 (6.0-8.3) gm/dl Albumin 4.0 (3.4-5.0) gm/dl Globulin 3.6 (2.5-4.0) gm/dl Albumin/Globulin Ratio 1.1 (0.9-2) TSH 1.312 (0.300-4.500) uIu/ml Urine Color Yellow Urine Appearance Clear (Clear) Urine pH 6.0 (4.5-7.5) Ur Specific [place] 1.007 (1.000-1.030) Urine Protein Negative (Negative) Urine Glucose (UA) Negative (Negative) Urine Ketones Negative (Negative) Urine Blood Negative (Negative) Urine Nitrite Negative (Negative) Urine Bilirubin Negative (Negative) Urine Urobilinogen Negative (Negative) Ur Leukocyte Esterase Negative (Negative) Administered Medications Magnesium Sulfate/Dextrose (Magnesium Sulfate / D5w) 1 gm in 100 mls @ 50 mls/hr IV Q2H WAQAS Stop: 01/03/24 22:29 Last Admin: 01/03/24 19:42 Dose: 50 mls/hr Documented By: AY Discontinued Medications Potassium Chloride (K Marco A / Wtr) 10 meq in 100 mls @ 100 mls/hr IV ONE ONE Stop: 01/03/24 18:34 Last Infusion: 01/03/24 19:42 Dose: Infused Documented By: Admin: 01/03/24 18:07 Dose: 100 mls/hr Documented By: RUDY Magnesium Sulfate/Dextrose (Magnesium Sulfate / D5w) 1 gm in 100 mls @ 100 mls/hr IV ONE ONE Stop: 01/03/24 19:19 Last Infusion: 01/03/24 19:42 Dose: Infused Documented By: Admin: 01/03/24 18:39 Dose: 100 mls/hr Documented By: RUDY Imaging Data Radiologist's Impression: Chest X-Ray 01/03/24 14:29 SINGLE VIEW CHEST CLINICAL HISTORY: Generalized weakness FINDINGS: A PA chest radiograph is compared to study dated 04/12/2020. The heart is mildly enlarged noting atherosclerotic calcification of the thoracic aorta. The pulmonary vasculature is noncongested. Calcified pleural plaques are similar to prior studies and consistent with asbestos-related pleural disease. No airspace consolidation or pleural effusion is identified. No pneumothorax is seen. The skeletal structures are osteopenic. The bony thorax is grossly intact. IMPRESSION: Mild cardiomegaly with no active disease in the chest. ACT 112: Negative or not required by law. Electronically signed by: Trenton Anderson M.D. 01/03/2024 2:51 PM Discharge Plan Visit Data Chief Complaint: Referred by Doctor Stated Complaint: REF BY DOC FOR INFUSION OF MAG AND POTASSIUM ED Provider: Juan C Rich Discharge Problem: Hypomagnesemia, Hypokalemia, Hyponatremia, Leukocytosis Forms Stand Alone Forms: My [facility] [employer] Prescriptions Prescriptions: No Action Adult 50 Plus Probiotic 4 billion cell capsule 4,000 mmu cells PO DAILY Rx Instructions: administer with a meal ergocalciferol (vitamin D2) 1,250 mcg (50,000 unit) capsule 1,250 mcg PO .COMPLEX Qty: 12 0RF Rx Instructions: One capsule PO monthly as maintenance dosing; torsemide 5 mg tablet 5 mg PO QAM Qty: 90 3RF sildenafil 100 mg tablet See Rx Instructions .ROUTE .COMPLEX Qty: 18 0RF Dose Instruction: TAKE 1 TABLET DAILY NEEDED FOR SEXUAL ACTIVITY Rx Instructions: TAKE 1 TABLET DAILY NEEDED FOR SEXUAL ACTIVITY simvastatin 40 mg tablet 40 mg PO HS Qty: 90 3RF Rx Instructions: TAKE 1 TABLET AT BEDTIME potassium chloride 20 mEq tablet extended release 20 meq PO DAILY Qty: 90 3RF epinephrine [EpiPen 2-Aleks] 0.3 mg/0.3 mL auto-injector 0.3 mg IM Q10M PRN (Reason: anaphylaxis) Qty: 2 0RF Rx Instructions: for 2 doses omeprazole magnesium [Prilosec OTC] 20 mg Tablet,Delayed Release (Dr/Ec) 20 mg PO QAM metoprolol succinate 50 mg tablet extended release 24 hr 50 mg PO DAILY Rx Instructions: TAKE 1 TABLET BY MOUTH DAILY Referrals Referrals: Madie Kraft DO [Primary Care Provider] -
[2024-01-03] MEDS: MAGNESIUM SULFATE / D5W 1 GM/100 ML BAG IV SCH ×2 (19:42→23:48)
--- OUTSIDE RECORDS SUMMARY | 2024-01-03 20:41 | External Medical Summary | Summary of Care ---
Author Name Unknown Organization [facility] Address [address] [place] [address] Phone [phone] Team Prov[address] Mechanical Engineer Name Role Phone Unavailable Primary Care Provider Unavailabl e Reason for Visit * Reason Comments Follow Up status post incision and drainage of large perirectal abscess. Encounter Details Date Type Department Care Team (Late st Contact Info) Description 01/02/2024 1:00 PM EDT Office Visit General Surgery, [facility] [address] [place] [address] Evin Dumont MD [address] [place] [address] Postop check* Allergies Active Allergy Reactions Criticality Noted Date Comments Bee Venom Anaphylaxis High 12/12/2023 documented as of this encounter (statuses as of 01/02/2024) Medications Medication Sig Dispensed Refills Start Date End Date Status Metoprolol Succinate ER 25 MG Oral Tablet Extended Release 24 Hour (toPROL XL) Active Simvastatin 40 MG Oral Tablet (Zocor) Take 1 Tablet by mouth at bedtime. 09/28/2023 Active Simvastatin Powder Active torsemide 2.5 MG OR TABS Take by mouth. Active documented as of this encounter (statuses as of 01/02/2024) Active Problems No known active problems documented as of this encounter (statuses as of 01/02/2024) Social History Tobacco Use Types Packs/Day Years Used Date Smoking Tobacco: Never Smokeless Tobacco: Never Utilities Answer Date Recorded Do you have trouble paying y our heating, water, or electric bill? (Adult - for ages 18 years and over) Not on file 12/03/2023 Is your family able to pay t he heat, water, or electric bill? (Household - for ages 0-17 years) Not on file 12/03/2023 Does your family have access to good internet? (Household - for ages 0-17 years) Not on file 12/03/2023 Social Connections Answer Date Recorded How often do you feel lonely or isolated from those around you? (Adult - for ages 18 years and over) Not on file 12/03/2023 Sex and Gender Information Value Date Recorded Sex Assigned at Not on file Gender Identity Not on file Sexual Orientation Not on file Job Start Date Occupation Industry Not on file Not on file Not on file documented as of this encounter Progress Notes * Evin Dumont MD - 01/02/2024 1:36 PM EDT six weeks status post incision and drainage of large perirectal abscess. He is doing quite well. Hehas home health coming to his pack his wound 1 times a week. He denies fevers or chills. He is having normal bowel movements. He denies other complaints. On exam the area is healing well without erythema or discharge. He is doing quite well. He will continue the home health. He will follow up prn. He will call with any new or concerning symptoms in the meantime. documented in this encounter Nursing Notes * Marlon Pratt MED ASSIST - 01/02/2024 1:02 PM EDT Chief Complaint Patient presents with Follow Up status post incision and drainage of large perirectal abscess. Verified patient. documented in this encounter Plan of Treatment Health Maintenance Due Date Last Done Comments Depression Screening 1957 Hepatitis C Screening 1963 DTaP,Tdap,and Td Vaccines (1 - Tdap) 1966 Zoster Vaccines (2 of 3) 01/17/2011 11/22/2010 COVID-19 Vaccine (6 - 2023-24 season) 2023 05/01/2023, 03/23/2022, 05/06/2021, Additional history exists Influenza Vaccine (FLU shot) (#1) 2024 05/01/2023, 03/23/2022, 03/17/2021, Additional history exists Pneumococcal Vaccine: 65+ Years Completed 08/12/2023, 12/09/2013 HPV (Gardasil) Vaccine Aged Out No lo nger eligible based on patient's age to complete this topic Hepatitis B Vaccine Aged Out No longe r eligible based on patient's age to complete this topic MENINGOCOCCAL (MENACTRA/MENVEO) Aged Out No longer eligible based on patient's age to complete this topic documented as of this encounter Medical Devices Not on filedocumented as of this encounter Visit Diagnoses Diagnosis Postop check- Primary Follow-up examination, following unspecified surgery documented in this encounter
--- OUTSIDE RECORDS SUMMARY | 2024-01-03 20:41 | External Medical Summary | Summary of Care ---
Author Name Unknown Organization [facility] Address [address] [place] [address] Phone [phone] Care Team Providers Care Volunteer Services Director Name Role Phone Unavailable Primary Care Provider Unavailabl e Encounter Details Date Type Department Care Team (Late st Contact Info) Description 12/12/2023 2:15 PM EDT Office Visit General Surgery, [facility] [address] [place] [address] Evin Dumont MD [address] [place] [address] Postop check* Allergies Active Allergy Reactions Criticality Noted Date Comments Bee Venom Anaphylaxis High 12/12/2023 documented as of this encounter (statuses as of 12/12/2023) Medications Medication Sig Dispensed Refills Start Date End Date Status Metoprolol Succinate ER 25 MG Oral Tablet Extended Release 24 Hour (toPROL XL) Active Simvastatin 40 MG Oral Tablet (Zocor) Take 1 Tablet by mouth at bedtime. 09/28/2023 Active Simvastatin Powder Active torsemide 2.5 MG OR TABS Take by mouth. Active documented as of this encounter (statuses as of 12/12/2023) Active Problems No known active problems documented as of this encounter (statuses as of 12/12/2023) Social History Tobacco Use Types Packs/Day Years Used Date Smoking Tobacco: Never Smokeless Tobacco: Never Tobacco Cessation:Counseling Given: Not Answered Utilities Answer Date Recorded Do you have [...] Progress Notes * Evin Dumont MD - 12/12/2023 3:04 PM EDT Three weeks status post incision and drainage of large perirectal abscess. He is doing quite well. He has home health coming to his pack his wound 3 times a week. He is doing quite well. He denies fevers or chills. He is having normal bowel movements. He denies other complaints. On exam the area is healing well without erythema or discharge. He is doing quite well. He will continue the home health. He will follow up in 4 weeks. He will call with any new or concerning symptoms in the meantime. documented in this encounter Nursing Notes * Jennifer Kidd LPN - 12/12/2023 2:20 PM EDT 2 week post op No concerns documented in this encounter Plan of Treatment Upcoming Encounters Date Type Department Care Team (Late st Contact Info) Description 01/02/2024 1:00 PM EDT Office Visit General Surgery, [facility] [address] [place] [address] Evin Dumont MD [address] [place] [address] Health Maintenance Due Date Last Done Comments Depression Screening 1957 Hepatitis C Screening 1963 DTaP,Tdap,and Td Vaccines (1 - Tdap) 1966 Zoster Vaccines (2 of 3) 01/17/2011 11/22/2010 COVID-19 Vaccine (6 - season) 2023 05/01/2023, 03/23/2022, 05/06/2021, Additional history exists Influenza Vaccine (FLU shot) Completed , 03/23/2022, 03/17/2021, Additional history exists Pneumococcal Vaccine: 65+ Years Completed 08/12/2023, 11/01/2014, 12/09/2013 GARDASIL-HPV IMMUNIZATION SERIES Aged Out No longer eligible based on patient's age to complete this topic Hepatitis B Aged Out No longer eligi ble based on patient's age to complete this topic MENINGOCOCCAL (MENACTRA/MENVEO) Aged Out No longer eligible based on patient's age to complete this topic documented as of this encounter Medical Devices Not on filedocumented as of this encounter Visit Diagnoses Diagnosis Postop check- Primary Follow-up examination, following unspecified surgery documented in this encounter
[2024-01-03] MEDS: POTASSIUM CHLORIDE CRTAB 20 MEQ TABCR PO STA (21:06)
[2024-01-03] MEDS: VANCOMYCIN HCL 125 MG/2.5ML SOLN PO SCH (21:07)
[2024-01-03] MEDS: POTASSIUM CHLORIDE / WTR 10 MEQ/100 ML PLCT IV SCH (21:07)
[2024-01-03] MEDS: CHERRY SYRUP 5 ML UDP PO SCH (21:07)
[2024-01-03 21:21] LABS: BUN Creatinine Ratio 13.5 (10-20); Calcium 7.6 mg/dl (8.6-10.3); Creatinine Clr Calc Pharmacy 70.7 ml/min; Est GFR (African American) 88.6 ml/min; Est GFR (Non-African American) 76.5 ml/min; Magnesium 1.1 mg/dl (1.7-2.4); Potassium 2.9 mmol/L (3.5-5.1)
[2024-01-03] MEDS ORDERED: ACETAMINOPHEN 325 MG TAB PO PRN (21:39)
[2024-01-03] MEDS: HEPARIN SOD 5,000 UNIT/0.5 ML VIAL SQ SCH (22:17)
[2024-01-03] MEDS: SIMVASTATIN 40 MG TAB PO SCH (22:17)
[2024-01-04 00:29] LABS: Adenovirus F 40/41 PCR Not Detected (NotDetected); Astrovirus PCR Not Detected (NotDetected); Campylobacter PCR Not Detected (NotDetected); Cryptosporidium PCR Not Detected (NotDetected); Cyclospora cayetanensis PCR Not Detected (NotDetected); Entamoeba histolytica PCR Not Detected (NotDetected); Enteroaggregative E.coli(EAEC) Not Detected (NotDetected); Enteropathogenic E.coli (EPEC) Not Detected (NotDetected); Enterotoxigenic E.coli (ETEC) Not Detected (NotDetected); Giardia lamblia PCR Not Detected (NotDetected); Norovirus GI/GII PCR Not Detected (NotDetected); Plesiomonas shigelloides PCR Not Detected (NotDetected); Rotavirus A PCR Not Detected (NotDetected); Salmonella PCR Not Detected (NotDetected); Sapovirus PCR Not Detected (NotDetected); Shiga-like Toxin E.coli (STEC) Not Detected (NotDetected); Shigella/Enteroinvasive E.coli Not Detected (NotDetected); Vibrio cholerae PCR Not Detected (NotDetected); Vibrio species PCR Not Detected (NotDetected); Yersinia enterocolitica PCR Not Detected (NotDetected)
[2024-01-04 00:49] LABS: Cdiff Antigen Positive; Cdiff Toxin B Gene (2yr or >) Positive Cdiff Gene (Neg)
[2024-01-04 00:51] LABS: Cdiff Toxin A+B Positive Cdiff Toxin (Negative)
[2024-01-04 00:56] LABS: BUN Creatinine Ratio 13.3 (10-20); Calcium 7.4 mg/dl (8.6-10.3); Creatinine Clr Calc Pharmacy 69.3 ml/min; Est GFR (African American) 86.5 ml/min; Est GFR (Non-African American) 74.6 ml/min; Magnesium 1.5 mg/dl (1.7-2.4)
[2024-01-04 07:01] LABS: Basophils # (auto) 0.08 K/uL (0.00-0.20); Basophils % (auto) 0.6 %; Eosinophils # (auto) 0.09 K/uL (0.00-0.50); Eosinophils % (auto) 0.7 %; Hematocrit (blood only) 31.7 % (42.0-52.0); Hemoglobin 11.5 g/dl (14.0-18.0); Immature Granulocytes # (auto) 0.19 K/uL (0.01-0.20); Immature Granulocytes % (auto) 1.4 %; Lymphocytes # (auto) 1.82 K/uL (1.20-3.40); Lymphocytes % (auto) 13.5 %; Mean Corpuscular Hemoglobin 31.8 pg (25.0-34.0); Mean Corpuscular Hgb Conc 36.3 g/dL (32.0-36.0); Mean Corpuscular Volume 87.6 fL (80.0-100.0); Mean Platelet Volume 9.3 fL (9.4-12.4); Monocytes # (auto) 1.89 K/uL (0.11-0.59); Monocytes % (auto) 14.1 %; Neutrophils # (auto) 9.37 K/uL (1.40-6.50); Neutrophils % (auto) 69.7 %; Platelet Count 476 K/uL (130-400); RDW Coefficient of Variation 12.1 % (11.5-14.5); RDW Standard Deviation 38.8 fL (36.4-46.3); Red Blood Count 3.62 M/uL (4.70-6.10); White Blood Count 13.44 K/ul (4.8-10.8)
[2024-01-04 07:27] LABS: BUN Creatinine Ratio 11.1 (10-20); Calcium 7.5 mg/dl (8.6-10.3); Creatinine Clr Calc Pharmacy 75.6 ml/min; Est GFR (African American) 95.8 ml/min; Est GFR (Non-African American) 82.7 ml/min; Magnesium 1.9 mg/dl (1.7-2.4); Potassium 2.8 mmol/L (3.5-5.1)
[2024-01-04] MEDS: ADVANCED PROBIOTIC 625 MG CAPSULE PO SCH (07:59)
[2024-01-04] MEDS: METOPROLOL SUCC 50MG EXT REL TAB PO SCH (08:02)
[2024-01-04] MEDS: POTASSIUM CHLORIDE CRTAB 20 MEQ TABCR PO SCH (08:02)
[2024-01-04] MEDS: POTASSIUM CHLORIDE CRTAB 20 MEQ TABCR PO STA (09:49)
[2024-01-04] MEDS: POTASSIUM CHLORIDE / WTR 10 MEQ/100 ML PLCT IV SCH (09:51)
[2024-01-04] MEDS: SODIUM CHLORIDE 0.9% 500 ML IV SCH (10:15)
--- NOTE | 2024-01-04 15:11 | Hospitalist Progress Note ---
Date of Service January 04, 2024 Assessment & Plan (1) Diarrhea: Plan: C. difficile positive Started on oral vancomycin 125 mg p.o. every 6 No more on any antibiotics. Completed Bactrim course. White count improved from 20,000-13,000 Continue isolation precautions Diarrhea still not improved yet Replete potassium (2) Hyponatremia: Plan: Na 126 on arrival Most likely related to dehydration from diarrhea Improved (3) Hypomagnesemia: Plan: Magnesium 0.6 on arrival Repleted Hold omeprazole (4) Hypokalemia: Plan: Repleted (5) Hypocalcemia: Plan: Suspect secondary to hypomagnesemia affecting PTH release Replete hypomagnesemia, and continue to monitor (6) Perirectal abscess: Plan: s/p I&D on November 26 On clinical exam, no signs of reinfection or drainage If patient does not improve, or clinically deteriorates, would consider reimaging Completed course of Bactrim (7) Leukocytosis: Plan: Secondary to C. difficile colitis Plan Full code Regular diet VTE PPx: Heparin 5000u SQ q12h Admission and Anticipated Discharge Date Admission Date: January 03, 2024 Subjective Patient has had ongoing diarrhea. Other than diarrhea, he has no complaints. The diarrhea has not improved in consistency, frequency or volume. Review of Systems Review of Systems: All systems reviewed & are unremarkable except as noted in Subjective Physical Exam Physical Exam: General: Awake, conversant Heart: S1, S2/regular rate and rhythm, no murmur rubs or gallops Lungs: Clear to auscultation bilaterally. Normal effort Abdomen: Soft/nontender/nondistended. No hepatosplenomegaly Extremities: No clubbing/cyanosis. No edema Behavior: Appropriate, cooperative Results & Data Results & Data Vital Signs (Past 12 Hours) Vital Signs Temp Pulse Pulse Resp BP Pulse Ox O2 Del Method 01/04/24 14:00 63 01/04/24 11:33 36.6 C 60 20 133/75 98 Room Air 01/04/24 08:00 66 01/04/24 07:36 36.7 C 70 18 109/65 98 Room Air Laboratory Results Abnormal lab results 01/03/24 01/03/24 01/03/24 Range/Units 16:23 18:10 20:43 WBC 20.31 H (4.8-10.8) K/ul RBC 4.06 L (4.70-6.10) M/uL Hgb 12.8 L (14.0-18.0) g/dl Hct 35.5 L (42.0-52.0) % MCHC 36.1 H (32.0-36.0) g/dL Plt Count 521 H (130-400) K/uL MPV (9.4-12.4) fL Neut # (Auto) 15.95 H (1.40-6.50) K/uL [place] # (Auto) 2.11 H (0.11-0.59) K/uL Immature Gran # (Auto) 0.32 H (0.01-0.20) K/uL Sodium 126 L 128 L (136-145) mmol/L Potassium 2.7 L 2.9 L (3.5-5.1) mmol/L Chloride 89 L 91 L (98-107) mmol/L Anion Gap 12 H (3-11) Glucose 113 H (70-99(Fasting)) mg/dl Osmolality 264 L (280-300) mOsm/kg Calcium 7.8 L 7.6 L (8.6-10.3) mg/dl Magnesium 0.6 L* 1.1 L (1.7-2.4) mg/dl C-Reactive Protein 1.91 H (0-0.5) mg/dl Urine Osmolality 186 L (500-800) mOsm/kg Stl C. diff Tox B Gene (Neg) Stl C.difficile Tox A&B (Negative) 01/03/24 01/04/24 01/04/24 Range/Units 22:40 00:12 05:54 WBC 13.44 H (4.8-10.8) K/ul RBC 3.62 L (4.70-6.10) M/uL Hgb 11.5 L (14.0-18.0) g/dl Hct 31.7 L (42.0-52.0) % MCHC 36.3 H (32.0-36.0) g/dL Plt Count 476 H (130-400) K/uL MPV 9.3 L (9.4-12.4) fL Neut # (Auto) 9.37 H (1.40-6.50) K/uL [place] # (Auto) 1.89 H (0.11-0.59) K/uL Immature Gran # (Auto) (0.01-0.20) K/uL Sodium 128 L 131 L (136-145) mmol/L Potassium 3.0 L 2.8 L (3.5-5.1) mmol/L Chloride 92 L 95 L (98-107) mmol/L Anion Gap (3-11) Glucose 149 H 106 H (70-99(Fasting)) mg/dl Osmolality (280-300) mOsm/kg Calcium 7.4 L 7.5 L (8.6-10.3) mg/dl Magnesium 1.5 L (1.7-2.4) mg/dl C-Reactive Protein (0-0.5) mg/dl Urine Osmolality (500-800) mOsm/kg Stl C. diff Tox B Gene Positive Cdiff Gene H (Neg) Stl C.difficile Tox A&B Positive Cdiff Toxin A* (Negative) PG Care Time/CCT Total # of Minutes Spent Total Time Spent with Patient: Total time spent is greater than 50% in coordination of care (as documented) at patient's floor/unit and/or counseling patient: Coding Level of Care Code 26840 SUB INP/OBS CARE 2/35MIN Diagnoses Diarrhea R19.7 Hyponatremia E87.1 Hypomagnesemia E83.42 Hypokalemia E87.6 Hypocalcemia E83.51 Perirectal abscess K61.1 Leukocytosis D72.829
[2024-01-05 06:56] LABS: BUN Creatinine Ratio 14.1 (10-20); Calcium 7.9 mg/dl (8.6-10.3); Creatinine Clr Calc Pharmacy 79.8 ml/min; Est GFR (African American) 98.1 ml/min; Est GFR (Non-African American) 84.6 ml/min; Magnesium 1.8 mg/dl (1.7-2.4)
[2024-01-05 07:01] LABS: Basophils # (auto) 0.09 K/uL (0.00-0.20); Basophils % (auto) 1.2 %; Eosinophils # (auto) 0.08 K/uL (0.00-0.50); Eosinophils % (auto) 1.1 %; Hematocrit (blood only) 31.7 % (42.0-52.0); Hemoglobin 11.1 g/dl (14.0-18.0); Immature Granulocytes # (auto) 0.19 K/uL (0.01-0.20); Immature Granulocytes % (auto) 2.5 %; Lymphocytes # (auto) 2.06 K/uL (1.20-3.40); Lymphocytes % (auto) 27.5 %; Mean Corpuscular Hemoglobin 31.3 pg (25.0-34.0); Mean Corpuscular Volume 89.3 fL (80.0-100.0); Mean Platelet Volume 9.1 fL (9.4-12.4); Monocytes # (auto) 1.03 K/uL (0.11-0.59); Monocytes % (auto) 13.7 %; Neutrophils # (auto) 4.05 K/uL (1.40-6.50); Platelet Count 487 K/uL (130-400); RDW Coefficient of Variation 12.1 % (11.5-14.5); RDW Standard Deviation 39.7 fL (36.4-46.3); Red Blood Count 3.55 M/uL (4.70-6.10)
[2024-01-05] MEDS: POTASSIUM CHLORIDE CRTAB 20 MEQ TABCR PO STA (09:03)
[2024-01-05] MEDS: NSS + 20MEQ KCL 20 MEQ/1,000 ML BAG IV SCH (09:05)
--- NOTE | 2024-01-05 14:21 | Hospitalist Progress Note ---
Date of Service January 05, 2024 Assessment & Plan (1) Diarrhea: Plan: C. difficile positive Started on oral vancomycin 125 mg p.o. every 6 No more on any antibiotics. Completed Bactrim course. Leukocytosis resolved Continue isolation precautions Diarrhea improving but not resolved yet Replete potassium Continue IV fluids (2) Hyponatremia: Plan: Na 126 on arrival Most likely related to dehydration from diarrhea Improved (3) Hypomagnesemia: Plan: Magnesium 0.6 on arrival Repleted Hold omeprazole (4) Hypokalemia: Plan: Repleted (5) Hypocalcemia: Plan: Suspect secondary to hypomagnesemia affecting PTH release Replete hypomagnesemia, and continue to monitor (6) Perirectal abscess: Plan: s/p I&D on November 26 On clinical exam, no signs of reinfection or drainage If patient does not improve, or clinically deteriorates, would consider reimaging Completed course of Bactrim (7) Leukocytosis: Plan: Secondary to C. difficile colitis Resolved Plan Full code Regular diet VTE PPx: Heparin 5000u SQ q12h Admission and Anticipated Discharge Date Admission Date: January 03, 2024 Subjective Patient feels well. Denies chest pain or shortness of breath. Says that his diarrhea is better in consistency and frequency. However, he still has diarrhea and is not back to his baseline yet. Review of Systems Review of Systems: All systems reviewed & are unremarkable except as noted in Subjective Physical Exam Physical Exam: General: Awake, conversant Heart: S1, S2/regular rate and rhythm, no murmur rubs or gallops Lungs: Clear to auscultation bilaterally. Normal effort Abdomen: Soft/nontender/nondistended. No hepatosplenomegaly Extremities: No clubbing/cyanosis. No edema Behavior: Appropriate, cooperative Results & Data Results & Data Vital Signs (Past 12 Hours) Vital Signs Temp Pulse Pulse Resp BP Pulse Ox O2 Del Method 01/05/24 11:09 36.7 C 57 L 18 128/73 98 Room Air 01/05/24 09:06 86 145/72 H 01/05/24 07:36 36.7 C 61 18 105/68 98 Room Air 01/05/24 07:22 57 L 01/05/24 03:00 36.5 C 57 L 20 116/88 97 Room Air Laboratory Results Abnormal lab results 01/05/24 Range/Units 05:41 RBC 3.55 L (4.70-6.10) M/uL Hgb 11.1 L (14.0-18.0) g/dl Hct 31.7 L (42.0-52.0) % Plt Count 487 H (130-400) K/uL MPV 9.1 L (9.4-12.4) fL [place] # (Auto) 1.03 H (0.11-0.59) K/uL Sodium 133 L (136-145) mmol/L Potassium 3.0 L (3.5-5.1) mmol/L Glucose 117 H (70-99(Fasting)) mg/dl Calcium 7.9 L (8.6-10.3) mg/dl PG Care Time/CCT Total # of Minutes Spent Total Time Spent with Patient: Total time spent is greater than 50% in coordination of care (as documented) at patient's floor/unit and/or counseling patient: Coding Level of Care Code 28199 SUB INP/OBS CARE 2/35MIN Diagnoses Diarrhea R19.7 Hyponatremia E87.1 Hypomagnesemia E83.42 Hypokalemia E87.6 Hypocalcemia E83.51 Perirectal abscess K61.1 Leukocytosis D72.829
[2024-01-06 06:54] LABS: Basophils # (auto) 0.09 K/uL (0.00-0.20); Basophils % (auto) 1.4 %; Eosinophils # (auto) 0.07 K/uL (0.00-0.50); Eosinophils % (auto) 1.1 %; Hematocrit (blood only) 31.1 % (42.0-52.0); Hemoglobin 10.8 g/dl (14.0-18.0); Immature Granulocytes # (auto) 0.23 K/uL (0.01-0.20); Immature Granulocytes % (auto) 3.5 %; Lymphocytes # (auto) 1.86 K/uL (1.20-3.40); Lymphocytes % (auto) 28.4 %; Mean Corpuscular Hemoglobin 31.4 pg (25.0-34.0); Mean Corpuscular Hgb Conc 34.7 g/dL (32.0-36.0); Mean Corpuscular Volume 90.4 fL (80.0-100.0); Mean Platelet Volume 8.6 fL (9.4-12.4); Monocytes # (auto) 0.69 K/uL (0.11-0.59); Monocytes % (auto) 10.6 %; Platelet Count 412 K/uL (130-400); RDW Coefficient of Variation 12.3 % (11.5-14.5); Red Blood Count 3.44 M/uL (4.70-6.10); White Blood Count 6.54 K/ul (4.8-10.8)
[2024-01-06 07:20] LABS: Creatinine Clr Calc Pharmacy 82.8 ml/min; Est GFR (African American) 99.6 ml/min; Est GFR (Non-African American) 85.9 ml/min; Magnesium 1.5 mg/dl (1.7-2.4); Potassium 3.5 mmol/L (3.5-5.1)
[2024-01-06] MEDS: MAGNESIUM SULFATE / D5W 1 GM/100 ML BAG IV SCH (09:21)
[2024-01-06] MEDS: POTASSIUM CHLORIDE CRTAB 20 MEQ TABCR PO STA (09:22)
--- NOTE | 2024-01-06 10:56 | Electrocardiogram Report ---
Test Reason : Blood Pressure : / mmHG Vent. Rate : 070 BPM Atrial Rate : 070 BPM P-R Int : 192 ms QRS Dur : 078 ms QT Int : 410 ms P-R-T Axes : 058 -60 003 degrees QTc Int : 442 ms Normal sinus rhythm Left axis deviation Inferior infarct , age undetermined Abnormal ECG No previous ECGs available Confirmed by Kofi Patel ([id number]) on 01/06/2024 10:55:41 AM Referred By: Confirmed By:Kofi Patel
--- NOTE | 2024-01-06 13:47 | Hospitalist Progress Note ---
Date of Service January 06, 2024 Assessment & Plan (1) Diarrhea: Plan: C. difficile positive Started on oral vancomycin 125 mg p.o. every 6 No more on any antibiotics. Completed Bactrim course. Leukocytosis resolved Continue isolation precautions Diarrhea improved Replete potassium and Mag Discontinue IV fluids (2) Hyponatremia: Plan: Na 126 on arrival Most likely related to dehydration from diarrhea Improved (3) Hypomagnesemia: Plan: Magnesium 0.6 on arrival Replete Hold omeprazole (4) Hypokalemia: Plan: Repleted (5) Hypocalcemia: Plan: Suspect secondary to hypomagnesemia affecting PTH release Replete hypomagnesemia, and continue to monitor (6) Perirectal abscess: Plan: s/p I&D on November 26 On clinical exam, no signs of reinfection or drainage If patient does not improve, or clinically deteriorates, would consider reimaging Completed course of Bactrim (7) Leukocytosis: Plan: Secondary to C. difficile colitis Resolved Plan Full code Regular diet VTE PPx: Heparin 5000u SQ q12h Likely d/c tomorrow Admission and Anticipated Discharge Date Admission Date: January 03, 2024 Subjective Patient feels well. Diarrhea improved, almost back to baseline. Review of Systems Review of Systems: All systems reviewed & are unremarkable except as noted in Subjective Physical Exam Physical Exam: General: Awake, conversant Heart: S1, S2/regular rate and rhythm, no murmur rubs or gallops Lungs: Clear to auscultation bilaterally. Normal effort Abdomen: Soft/nontender/nondistended. No hepatosplenomegaly Extremities: No clubbing/cyanosis. No edema Behavior: Appropriate, cooperative Results & Data Results & Data Vital Signs (Past 12 Hours) Vital Signs Temp Pulse Pulse Resp BP Pulse Ox O2 Del Method 01/06/24 10:40 36.3 C L 65 16 116/71 98 Room Air 01/06/24 08:00 55 L 01/06/24 07:32 36.5 C 61 18 131/63 98 Room Air 01/06/24 03:04 36.4 C L 64 16 136/73 98 Room Air 01/06/24 02:46 55 L Laboratory Results Abnormal lab results 01/06/24 Range/Units 06:36 RBC 3.44 L (4.70-6.10) M/uL Hgb 10.8 L (14.0-18.0) g/dl Hct 31.1 L (42.0-52.0) % Plt Count 412 H (130-400) K/uL MPV 8.6 L (9.4-12.4) fL [place] # (Auto) 0.69 H (0.11-0.59) K/uL Immature Gran # (Auto) 0.23 H (0.01-0.20) K/uL Glucose 109 H (70-99(Fasting)) mg/dl Calcium 8.0 L (8.6-10.3) mg/dl Magnesium 1.5 L (1.7-2.4) mg/dl PG Care Time/CCT Total # of Minutes Spent Total Time Spent with Patient: Total time spent is greater than 50% in coordination of care (as documented) at patient's floor/unit and/or counseling patient: Coding Level of Care Code 95194 SUB INP/OBS CARE 2/35MIN Diagnoses Diarrhea R19.7 Hyponatremia E87.1 Hypomagnesemia E83.42 Hypokalemia E87.6 Hypocalcemia E83.51 Perirectal abscess K61.1 Leukocytosis D72.829
[2024-01-06] MEDS: CALCIUM CARBONATE 500 MG CHEWABLE TAB PO PRN (21:08)
[2024-01-07 07:59] LABS: Basophils # (auto) 0.06 K/uL (0.00-0.20); Basophils % (auto) 0.8 %; Eosinophils # (auto) 0.08 K/uL (0.00-0.50); Eosinophils % (auto) 1.1 %; Hematocrit (blood only) 34.3 % (42.0-52.0); Hemoglobin 11.6 g/dl (14.0-18.0); Immature Granulocytes # (auto) 0.18 K/uL (0.01-0.20); Immature Granulocytes % (auto) 2.4 %; Lymphocytes # (auto) 1.84 K/uL (1.20-3.40); Mean Corpuscular Hemoglobin 30.9 pg (25.0-34.0); Mean Corpuscular Hgb Conc 33.8 g/dL (32.0-36.0); Mean Corpuscular Volume 91.5 fL (80.0-100.0); Mean Platelet Volume 8.9 fL (9.4-12.4); Monocytes # (auto) 0.68 K/uL (0.11-0.59); Monocytes % (auto) 9.2 %; Neutrophils # (auto) 4.52 K/uL (1.40-6.50); Neutrophils % (auto) 61.5 %; Platelet Count 515 K/uL (130-400); RDW Coefficient of Variation 12.5 % (11.5-14.5); Red Blood Count 3.75 M/uL (4.70-6.10); White Blood Count 7.36 K/ul (4.8-10.8)
[2024-01-07 08:17] LABS: Albumin Globulin Ratio 1.3 (0.9-2); Albumin Level 3.5 gm/dl (3.4-5.0); BUN Creatinine Ratio 12.4 (10-20); Bilirubin,Total 0.3 mg/dl (0.2-1.0); Calcium 8.8 mg/dl (8.6-10.3); Creatinine Clr Calc Pharmacy 76.4 ml/min; Est GFR (African American) 96.3 ml/min; Est GFR (Non-African American) 83.1 ml/min; Globulin 2.8 gm/dl (2.5-4.0); Potassium 4.3 mmol/L (3.5-5.1); Total Protein 6.3 gm/dl (6.0-8.3)
--- NOTE | 2024-01-07 10:15 | Discharge Summary ---
Date of Service January 07, 2024 Admission HPI Per Admitting Provider Salvatore is a pleasant 78yo male with PMH of perirectal abscess, SIADH, bilateral sacroiliitis, hepatic hemangioma, and chronic fatigue syndrome. He presented on 01/02 at the behest of his yoga coordinator for abnormal electrolytes drawn in the outpatient labs on . Remote history of surgery for rectal abscess on November 26; discharged on November 28 on Augmentin. Patient has been following with wound care outpatient every week. He was then placed on Bactrim on 12/11 based on an outpatient wound culture. Patient's is at the bedside, and provides additional history. Of note, she has been worried about his gait recently. The patient does endorse feeling "rundown" over the past couple weeks. His only symptom has been diarrhea twice daily, but then he started taking Imodium earlier in the week and it subsided. Patient took his regular morning medications today; his only recent change in medication was starting on potassium pills 1 week ago. Patient has been off antibiotics for approximately 10 days. He is lost about 20 pounds since the operation. No prior history of C. difficile infections. No sick contacts. No supplemental oxygen at night. No prior history of hypomagnesemia or hypokalemia besides this past week. Patient denies smoking, tobacco use, or recent alcohol use. Patient is hypertensive at 143/73 at admission. ED Course: Magnesium sulfate 1 g IV x 3 K rider 10mEq IV x 1 ROS: Patient endorses diarrhea (ongoing since hospitalization, has a current twice daily; has been taking Imodium for the past week) Patient denies fever, chills, night-sweats, RICHARDSON, dizziness/lightheadedness, chest pain, SOB, abdominal pain, N/V, lower back pain, saddle anesthesia, burning with urination, blood in the urine/stool. Admission Exam Per Admitting Provider General: no acute distress; non-toxic appearing; well-nourished; cooperative; SpO2 96% on RA HEENT: normocephalic, atraumatic; no scleral icterus; PERRLA; vision and hearing grossly intact Neck: supple; no lymphadenopathy; trachea midline Skin: warm, dry without signs of tenting; no cyanosis; no rashes, bruising, lesions, or erythema noted CV: chest wall NTP; RRR; S1/S2 normal; no murmurs/rubs/gallops; pulses intact and symmetric at radial, DP, and PT Lungs: no acute respiratory distress; symmetrical chest wall expansion; clear breath sounds across all lung [place] w/o adventitious sounds; no wheezing ABD: Soft, NTP; BS present; no rebound/guarding; no distention; no rashes or bruising on the abdomen flanks or back Rectum: Wound is not visible on examination; no erythema or drainage from the rectum noted MSK: no tics or fasciculations; no edema noted in the LEs b/l, nonerythematous Neuro: A&Ox3; normal mood and affect; fluent speech; no focal deficits; sensation grossly intact in the LEs b/l Principal Diagnosis C. difficile colitis Hypomagnesemia, hypokalemia due to GI losses Discharge Exam General: Awake, conversant Heart: S1, S2/regular rate and rhythm, no murmur rubs or gallops Lungs: Clear to auscultation bilaterally. Normal effort Abdomen: Soft/nontender/nondistended. No hepatosplenomegaly Extremities: No clubbing/cyanosis. No edema Behavior: Appropriate, cooperative Discharge Data Allergies Allergy/AdvReac Type Severity Reaction Status Date / Time bee venom protein (honey bee) Allergy Severe Anaphylaxis Verified 12/30/23 13:52 No Known Drug Allergies Allergy 0 Verified 12/30/23 13:52 Consultations 01/03/24 18:44 ED Decision to Admit Stat Hospital Course (1) Diarrhea: C. difficile positive Started on oral vancomycin 125 mg p.o. every 6 No more on any antibiotics. Completed Bactrim course. Leukocytosis resolved Diarrhea resolved Repleted potassium and Mag Discontinue IV fluids (2) Hyponatremia: Na 126 on arrival Most likely related to dehydration from diarrhea Improved (3) Hypomagnesemia: Magnesium 0.6 on arrival Repleted Resumed omeprazole Likely due to GI losses (4) Hypokalemia: Repleted Likely due to GI losses (5) Hypocalcemia: Suspect secondary to hypomagnesemia affecting PTH release Replete hypomagnesemia, and continue to monitor (6) Perirectal abscess: s/p I&D on November 26 On clinical exam, no signs of reinfection or drainage Completed course of Bactrim prior to hospitalization (7) Leukocytosis: Secondary to C. difficile colitis Resolved Plan Discharge to home today on oral vancomycin to complete the course. Total Time Total Time Spent Total Time Spent (In Minutes): 35 Discharge Plan Discharge Items Patient Disposition: Home - Self-Care Reason For Visit: HYPOMAG, HYPOK Discharge Diagnosis: C. difficile colitis Hypomagnesemia, hypokalemia due to GI losses Activity: Resume your previous activity Non-emergency contact: Primary Care Provider Call non-emergency contact if: you have any medication questions and your symptoms worsen Follow-up/Referrals: Madie Karft DO [Primary Care Provider] - 01/24/24 3:00 pm (Hospital follow up scheduled January 23 at 3:00 with Christina Swain PA-C) Diet: Heart Healthy Addtl Attending Provider Instructions: Advised to follow-up with PCP in 1 week Pending Studies at Discharge: No Stand-Alone Forms: [facility] Medications and DC Order Prescriptions: New vancomycin 125 mg capsule 125 mg PO Q6H 6 Days Qty: 24 0RF Continued Adult 50 Plus Probiotic 4 billion cell capsule 4,000 mmu cells PO DAILY Rx Instructions: administer with a meal ergocalciferol (vitamin D2) 1,250 mcg (50,000 unit) capsule 1,250 mcg PO .COMPLEX Qty: 12 0RF Rx Instructions: One capsule PO monthly as maintenance dosing; torsemide 5 mg tablet 5 mg PO QAM Qty: 90 3RF sildenafil 100 mg tablet See Rx Instructions .ROUTE .COMPLEX Qty: 18 0RF Dose Instruction: TAKE 1 TABLET DAILY NEEDED FOR SEXUAL ACTIVITY Rx Instructions: TAKE 1 TABLET DAILY NEEDED FOR SEXUAL ACTIVITY simvastatin 40 mg tablet 40 mg PO HS Qty: 90 3RF Rx Instructions: TAKE 1 TABLET AT BEDTIME potassium chloride 20 mEq tablet extended release 20 meq PO DAILY Qty: 90 3RF epinephrine [EpiPen 2-Aleks] 0.3 mg/0.3 mL auto-injector 0.3 mg IM Q10M PRN (Reason: anaphylaxis) Qty: 2 0RF Rx Instructions: for 2 doses omeprazole magnesium [Prilosec OTC] 20 mg Tablet,Delayed Release (Dr/Ec) 20 mg PO QAM metoprolol succinate 50 mg tablet extended release 24 hr 50 mg PO DAILY Rx Instructions: TAKE 1 TABLET BY MOUTH DAILY Discharge Orders: Discharge Order (Routine); Ordered 01/07/24 Ordered By: Efrain Neville Admission Data Admit Date/Time: 01/03/24 19:44 Attending Provider: Efrain Neville Admit Provider: Wilfred Barahona Primary Care Provider: Madie Kraft Other Providers: Wilfred Barahona; [facility] Other Interventions: Discharge Summary Assessment (RN) Last Done: 01/07/24 10:14 Coding Level of Care Code 26005 INP/OBS DISCH >30 MIN Diagnoses Diarrhea R19.7 Hyponatremia E87.1 Hypomagnesemia E83.42 Hypokalemia E87.6 Hypocalcemia E83.51 Perirectal abscess K61.1 Leukocytosis D72.829
== END 2024-01-07 11:59 | disposition home health service (06) | DRG 372 ==
LOC: ED 14:20 → SUATTDRO 19:44 → 2S 19:44